=== PATIENT | male | born 1995 | race Caucasian/White ===

== ENCOUNTER 2017-06-21 18:39 | Inpatient (IN) | payer BC ==
[~2017-06-21 18:39] MED LIST: IOPAMIDOL (ISOVUE 370) 100 ML BTL IV ONE
--- NOTE | 2017-06-21 19:33 | EDPHY ---
HPI/HX/ROS/PE/MDM Narrative: CHIEF COMPLAINT: Pulmonary Emboli HPI: This patient is a 21 year old male with history of CVA in February, presenting with bilateral pulmonary emboli identified by CT shortly prior to arrival. Two years ago, he presented to the emergency department with a severe headache and was transported by helicopter to [facility] for admission and treatment of left transverse sinus occlusion. He was formerly anticoagulated (Warfarin) but discontinued this. Family history positive for antithrombin III deficiency in his mother. The patient was in [facility] over thanksgiving break visiting family. When he returned, he noted he became very short of breath after minor exertion. Last weekend, he noted a racing heart. He was evaluated at the [facility] today, and received a CT scan. CT was positive for bilateral pulmonary emboli, and the patient was brought immediately from CT to the emergency department by wheelchair. The patient denies calf pain or swelling. He endorses left hip pain onset three days ago, but he feels this is musculoskeletal in origin. REVIEW OF SYSTEMS: Aside from elements discussed in the HPI, a comprehensive 10-point review of systems was reviewed and is negative. PMH: CVA 2014. Family history positive for antithrombin III deficiency in mother. SOCIAL HISTORY: Nonsmoker. Occasional alcohol use. No illicit drug use. PHYSICAL EXAM: General:Patient is alert, in no acute distress. ENT:Eyes are normal to inspection. ENT inspection normal. Neck: Normal inspection. Full range of motion. Respiratory:No respiratory distress. Breath sounds normal bilaterally. Cardiovascular: Regular rate and rhythm. Strong peripheral pulses. Normal cap refill. Abdomen:The abdomen is nontender to palpation. There are no peritoneal signs. There are normal bowel sounds. Back: Normal to inspection. No tenderness to palpation. Skin: Normal color. No rash. Warm and dry. Extremities: Normal appearance. Full range of motion. Neuro: Oriented x3. Normal motor function. Normal sensory function. ED Course: 21 year old male presents with dyspnea secondary to a pulmonary embolus diagnosed this afternoon by CT. Exam unremarkable. Vitals stable. CTA chest read by Dr. Durham, radiologist, shows extensive bilateral pulmonary embolic disease. Plan to admit for anticoagulation therapy. Plan to administer 80mg SC Lovenox prior to patient's discharge to floor. IV established. Plan for labs including CBC, chemistries, coag, Troponin, D-dimer, and hypercoagulation panel. 17:[address] Dawson, hospitalist. She accepts admission to PCU for bilateral pulmonary emboli. - Data Points Imaging Results: Imaging Impressions Chest/Thorax CTA 06/21/17 18:00 Impression: Extensive bilateral pulmonary embolic disease. Results discussed with Dr. Horner and the patient immediately after the examination, and he was taken directly to the emergency room via wheel chair. General information for patients regarding this examination can be found at [email or web address]. If you have questions or comments about this report, please contact me at (hospital) or [phone] (cell). A test result has been communicated to a licensed care provider and documented in the [employer] Critical Result system on 06/21/2017 18:39, Message ID [id number]. Medications Given: Discontinued Medications Enoxaparin Sodium (Lovenox) 80 mg SC EDNOW ONE Stop: 06/21/17 19:35 Last Admin: 06/21/17 20:32 Dose: 80 mg Sodium Chloride (Ns) 1,000 mls @ 0 mls/hr IV EDNOW ONE; Wide Open PRN Reason: Protocol Stop: 06/21/17 19:35 Last Admin: 06/21/17 20:31 Dose: 1,000 mls General Time Seen by Provider: 06/21/17 19:21 Initial Vital Signs: Initial Vital Signs Temperature (C) 36.8 C 06/21/17 18:50 Heart Rate 90 06/21/17 18:50 Respiratory Rate 16 06/21/17 18:50 Blood Pressure 124/77 H 06/21/17 18:50 O2 Sat (%) 95 06/21/17 18:50 O2 Delivery Mode Room Air Allergies/Adverse Reactions: No Known Allergies Allergy (Verified 06/21/17 19:01) Home Medications: Medication Instructions Recorded Herbals/Supplements -Info Only 1 ea PO DAILY 06/21/17 Ibuprofen [Motrin (*)] 600 mg PO DAILY PRN 06/21/17 Departure - Departure Disposition: [facility] Inpatient Acute Clinical Impression: Pulmonary embolus Qualifiers: Pulmonary embolism type: other Chronicity: acute Condition: Fair Report Scribed for: Jun Romano Report Scribed by: Rosa Alvarado Date of Report: 06/21/17 Time of Report: 19:35 Physician Review and Approval Statement: Portions of this note were transcribed by an ED scribe. I personally performed the history, physical exam, and medical decision making; and confirm the accuracy of the information in the transcribed note.
[2017-06-21] MEDS ORDERED: NS 1,000 ML IV ONE (19:34)
[2017-06-21] MEDS ORDERED: ENOXAPARIN 80 MG/0.8 ML SYR SC ONE (19:34)
--- NOTE | 2017-06-21 19:54 | CPEKG ---
Heart Rate: 88 RR Interval: 682 P-R Interval: 168 QRSD Interval: 76 QT Interval: 352 QTC Interval: 426 P Sanford: 66 QRS Sanford: 51 T Wave Sanford: 17 EKG Severity - NORMAL ECG - EKG Impression: SINUS RHYTHM Electronically Signed By: Jun Romano 21-Jun-2017 21:50:49
[2017-06-21] MEDS ORDERED: ONDANSETRON DISINTEGRATING 4 MG TAB PO PRN (19:57)
[2017-06-21] MEDS ORDERED: ACETAMINOPHEN 325 MG TAB PO PRN (19:57)
[2017-06-21] MEDS ORDERED: ONDANSETRON 4 MG/2 ML VIAL IVP PRN (19:57)
[2017-06-21 20:28] LABS: HEMOGLOBIN 15.7 g/dL (13.7-17.5); MEAN CELL HEMOGLOBIN 28.8 pg (27.9-34.1); MEAN CELL HEMOGLOBIN CONCENTR. 34.1 g/dL (32.4-36.7); MEAN CELL VOLUME 84.4 fL (81.5-99.8); RED BLOOD CELL COUNT 5.45 10^6/uL (4.40-6.38); RED CELL DISTRIBUTION WIDTH 12.6 % (11.5-15.2)
[2017-06-21 20:29] LABS: % IMMATURE GRANULYOCYTES 0.3 % (0.0-1.1); ABSOLUTE IMMATURE GRANULOCYTES 0.03 10^3/uL (0.00-0.10); ADD DIFF? NO; ADD MORPH? NO; ADD SCAN? NO; ATYPICAL LYMPHOCYTE FLAG 0 (0-99); FRAGMENT RBC FLAG 0 (0-99); LEFT SHIFT FLG 0 (0-99); LIPEMIA HEMOLYSIS FLAG 90 (0-99); PLATELET CLUMPS FLAG 0 (0-99); PLATELET COUNT 224 10^3/uL (150-400)
[2017-06-21 20:41] LABS: ANION GAP 16 mEq/L (8-16); CARBON DIOXIDE 22 mEq/l (22-31); CHLORIDE 104 mEq/L (97-110); CREATININE 1.3 mg/dL (0.7-1.3); GLOMERULAR FILTRATION RATE > 60; GLUCOSE 83 mg/dL (70-100); POTASSIUM 4.2 mEq/L (3.5-5.2); SODIUM 142 mEq/L (134-144)
[2017-06-21 20:44] LABS: INR 1.09 (0.83-1.16); PROTIME(PATIENT) 14.3 SEC (12.0-15.0)
[2017-06-21 20:45] LABS: APTT 25.5 SEC (23.0-38.0)
[2017-06-21 20:52] LABS: TROPONIN I < 0.012 ng/mL (0.000-0.034)
[2017-06-21] MEDS ORDERED: NS 1,000 ML IV SCH (22:30)
--- NOTE | 2017-06-21 22:50 | GHP ---
[f rep st] HISTORY AND PHYSICAL DATE OF ADMISSION: 06/21/2017 CHIEF COMPLAINT: Bilateral pulmonary embolism. HISTORY OF PRESENT ILLNESS: A 21-year-old male with history of left transverse sinus thrombosis, secondary intracerebral hemorrhage in 2014, who presented today with bilateral pulmonary emboli, identified by CT shortly prior to arrival. He was previously on Coumadin but discontinued this. He has a positive family history for antithrombin 3 deficiency in his mother. He was in [facility] over and returned last Wednesday, a week ago. Upon return, he noticed his heart racing and significant shortness of breath. He said he would pant when climbing stairs. He was in [employer] this week and noted these symptoms worsening. He also complained of dizziness, especially with his panting episodes. Had a headache this week. He was evaluated at [facility] today and then CT scan was done. REVIEW OF SYSTEMS: I completed a 10-point review of systems, negative except as noted in HPI. PAST MEDICAL HISTORY: CVA in 2014, left transverse sinus occlusion. PAST SURGICAL HISTORY: None. FAMILY HISTORY: Antithrombin 3 deficiency in mother. Paternal uncle with a clotting disorder. SOCIAL HISTORY: He is a senior at . No tobacco or drugs. Significant alcohol intake, said he binged this weekend, 10-12 beers a day. HOME MEDICATIONS: Ibuprofen p.r.n. ALLERGIES: No known drug allergies. PHYSICAL EXAMINATION: VITAL SIGNS: Temperature 36.6, blood pressure 132/86, heart rate in the 90s, respirations 16, 97% on room air. GENERAL: Well- appearing, sitting up in bed, no acute distress. Anxious. HEENT: PERRLA. EOMI. Oropharynx clear. CV: Regular rate and rhythm. No murmurs, gallops, or rubs. No tenderness over the chest. LUNGS: Clear. No crackles or wheezing. ABDOMEN: Soft, nontender, nondistended. Positive bowel sounds. : No suprapubic tenderness. MUSCULOSKELETAL: 5/5 upper and lower extremity strength. No swelling or tenderness over either leg. NEURO: 2 through 12 intact. PSYCH: Alert and oriented x3. LABS: WBC 11, hemoglobin 15, hematocrit 44, platelets 224. D-dimer was 8.5. INR 1.0, PT 14, PTT 25. Sodium 142, potassium 4, chloride 105, creatinine is 1.4, BUN 14, glucose 84. Troponin less than 0.012. BNP is 22. CTA: Extensive bilateral segmental lobar filling defects consistent with pulmonary embolic disease. Right-sided heart chamber is not dilated and interventricular septum retains normal morphology. Chest x-ray is personally reviewed by me. No infiltrate or edema. EKG is personally reviewed by me, sinus rhythm, ST flattening in III, aVF and V2 , V3. ASSESSMENT AND PLAN: 1. Acute pulmonary embolism: history of prior thrombosis. Previously on Coumadin. At this point, I would recommend lifelong anticoagulation. Hypercoagulable panel in the past was negative. This was repeated in the emergency room. He needs to establish care with a primary care physician to follow this. Treat with Lovenox until he decides pill option. He is hemodynamically stable on room air. Troponin and BNP are normal. I had extensive conversation about the risks of AC especially in setting of significant Etoh use. 2. Tachycardia secondary to suspected dehydration. Will hydrate. 3. Acute kidney injury: Creatinine elevated at 1.4. Will hydrate and recheck in the morning. 4. Mild leukocytosis: Likely stress inflammation with acute emboli. No evidence of infection nor symptoms. 5. Diet: Regular. 6. Deep venous thrombosis prophylaxis: On Lovenox. 7. Disposition: Patient warrants observation admission given acute pulmonary emboli requiring telemetry and anticoagulation. /[id number]/MODL MTDD
[2017-06-22] MEDS ORDERED: ENOXAPARIN 80 MG/0.8 ML SYR SC SCH (09:00)
[2017-06-22] MEDS ORDERED: Herbals/Supplements -Info Only PO SCH (09:00)
--- NOTE | 2017-06-22 09:33 | ASMTCASEMG ---
Living Arrangements What is your living Answers: With Other (Not Family) arrangement? Who do you live with? Type Of Residence What kind of residence do Answers: House you live in? 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 Anticipates that pt will d/c independent when medically ready. CM available for d/c needs. Plan: Independent Date Signed: 06/22/2017 09:33 AM Electronically Signed By:DAYO De Leon
--- NOTE | 2017-06-22 12:43 | HOSPPROG ---
Hospitalist Progress Note Assessment/Plan: Patient is a 21-year-old male with a history a left transverse sinus thrombosis secondary to a intra cerebral hemorrhage in 2014. He presented the emergency room after noting he had bilateral pulmonary emboli via CT scan. He has a positive family history of antithrombin 3 deficiency in his mother. He was recently traveling and on return he knows his heart was racing and he had shortness of breath. Today is my counter with the patient. Chart reviewed. * bilateral extensive PE's-will need life long anticoagulation - has had a hypercoagulable panel done in the past that was negative - this panel was repeated in the emergency room - patient is very short of breath w activity and coughs frequently with walking - on treatment dose of Lovenox/ will initiate Pradaxa (it has a reversal agent and patient is very active) - patient and his mom are verifying insurance covers this - pharmacy reviewed w patient about Pradaxa. I gave him a handout in regards to this medication. * tachycardia -resolved * acute kidney injury -recheck in a.m. * mild leukocytosis *right hip pain -has good mobility *Plan: Sunny is very short of breath w any activity, he will require another midnight stay for closer monitoring. Will dc Lovenox, start Pradaxa. He will need a note for a school excuse on discharge. Subjective: Sunny is c/o coughing & shortness of breath w activity Objective: Vital Signs Temp Pulse Resp BP Pulse Ox 37.1 C 91 20 125/90 H 94 06/22/17 11:57 06/22/17 11:57 06/22/17 11:57 06/22/17 11:57 06/22/17 11:57 Laboratory Results 06/21/17 20:05 06/21/17 20:05 06/21/17 06/22/17 06/23/17 05:59 05:59 05:59 Intake Total 1750 Balance 1750 PT 14.3 SEC (12.0-15.0) 06/21/17 20:05 INR 1.09 (0.83-1.16) 06/21/17 20:05 - Physical Exam Constitutional: uncomfortable Eyes: PERRL Ears, Nose, Mouth, Throat: hearing normal Cardiovascular: regular rate and rhythym Respiratory: no respiratory distress, other (increase coughing w deep breaths) Gastrointestinal: normoactive bowel sounds Skin: warm Musculoskeletal: full muscle strength Neurologic: AAOx3 Psychiatric: interacting appropriately ICD10 Worksheet Patient Problems: Problems Problem Status Onset Pulmonary embolus Acute
[2017-06-22 14:13] LABS: PROTEIN C ACTIVITY 72 % (70 - 150)
--- NOTE | 2017-06-22 16:03 | PDMN ---
Medical Necessity Medical necessity: Patient meets INPT criteria per THEATRE MANAGER note and MCG M-290 PE - ( hx of L transverse sinus thrombosis/secondary intracerebral hemorrhage 2014, family history of antithrombin 3 deficiency in mother; bilat extensive PE's found on CT; ongoing dyspnea w/any exertion; will begin coverage w/Pradaxa as it has a reversal agent and patient is very active; ongoing ABEBA/Creat remains elevated at 1.4 after IV hydration; anticipated LOS > 2 midnights for continued close monitoring and transition to new anticoagulant.)
[2017-06-22] MEDS: DABIGATRAN ETEXILATE MESYL 150 MG CAP PO SCH (19:55)
[2017-06-23 05:47] LABS: ANION GAP 18 mEq/L (8-16); CALCIUM 9.3 mg/dL (8.5-10.4); CARBON DIOXIDE 20 mEq/l (22-31); CHLORIDE 106 mEq/L (97-110); CREATININE 1.1 mg/dL (0.7-1.3); GLOMERULAR FILTRATION RATE > 60; GLUCOSE 102 mg/dL (70-100); POTASSIUM 4.3 mEq/L (3.5-5.2); SODIUM 144 mEq/L (134-144)
[2017-06-23] MEDS: DABIGATRAN ETEXILATE MESYL 150 MG CAP PO SCH (08:34)
[2017-06-23 08:38] VITALS: BP 124/77; PULSE 88; RESP 18; TEMP 98.4; O2SAT 93
[2017-06-23 10:49] LABS: PROTEIN S ACTIVITY 155 % (65 - 160)
--- NOTE | 2017-06-23 14:03 | ASDISCHSUM ---
Discharge Information Plan Status:Home with No Needs Medically Cleared to Leave: Discharge Date:06/23/2017 11:57 AM CM D/C Disposition:Home, Routine, Self-Care ADT D/C Disposition:Home, Routine, Self-Care Projected Discharge Date:06/23/2017 11:57 AM Transportation at D/C: Discharge Delay Reason: Follow-Up Date:06/23/2017 11:57 AM Discharge Slot: Final Diagnosis: Placement Information Patient Contact Information Contact Name:DON Relationship:Mother Address: Work Phone: City: [facility] Phone: State/Zip Code: Email: Financial Information Financial Class:HMO and PPO Plans Primary Plan Desc:[employer] Primary Plan Number:[id number] Secondary Plan Desc: Secondary Plan Number: Assessment Information [facility] Initial CM Assessment Living Arrangements What is your living Answers: With Other (Not Family) arrangement? Who do you live with? Type Of Residence What kind of residence do Answers: House you live in? 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 Anticipates that pt will d/c independent when medically ready. CM available for d/c needs. Plan: Independent Date Signed: 06/22/2017 09:33 AM Electronically Signed By:DAYO De Leon Intervention Information
[2017-06-23 16:01] LABS: INTERPRETATION See Comments
--- NOTE | 2017-06-23 21:26 | GDS ---
[f rep st] DISCHARGE SUMMARY DISCHARGE DIAGNOSES: 1. Acute bilateral extensive pulmonary emboli. 2. Tachycardia. 3. Acute kidney injury. 4. Mild leukocytosis. STUDIES AND PROCEDURES DONE: CT angio of the chest. PHYSICAL EXAMINATION: GENERAL: The patient is alert. VITAL SIGNS: Afebrile at 36.9, pulse is 80, respiratory rate is 18, blood pressure is 124/77, he is saturating 93% on room air. I have seen and evaluated the patient on the day of discharge. HOSPITAL COURSE: The patient is a 21-year-old male, who presented to the emergency room with complaints of shortness of breath. He was evaluated and diagnosed with: 1. Bilateral extensive pulmonary emboli. During this hospitalization, hypercoagulable panel has been sent. It is pending at the time of disposition. He has been initiated on Lovenox and transitioned to Pradaxa. A prescription for Pradaxa has been provided for the patient at the time of disposition. He does also have a history of a left transverse sinus thrombus secondary to intracerebral hemorrhage in 2015. It is recommended the patient remain on lifelong anticoagulation therapy. He has been educated about this during this hospital course, and understands the significance of this. He will follow up with a azure architect of his choice in the outpatient setting. 2. Tachycardia. This is in the setting of acute clot, and has resolved. 3. Acute kidney injury. Patient's creatinine is 1.1 on the day of disposition. 4. Disposition: The patient will be discharged home independently. He is hemodynamically stable. He will continue Pradaxa in the outpatient setting, and follow up with azure architect of his choice. Pending studies include coagulability panel. I spent greater than 35 minutes in the care, coordination, and management of this patient's disposition. /[id number]/MODL MTDD
== END 2017-06-23 11:57 | disposition home or self-care (01) | DRG 176 ==
LOC: F3E 21:10 → OBSVTOIN 06-22 14:38
PROVIDERS: ADMIT Internal Medicine; ATTEND Internal Medicine
DX: I26.99 Other pulmonary embolism without acute cor pulmonale (principal); N17.9 Acute kidney failure, unspecified; M25.552 Pain in left hip; E86.0 Dehydration; R00.0 Tachycardia, unspecified; Z86.711 Personal history of pulmonary embolism
CPT/HCPCS: 82947-QW; 85300-90; 85303-90; 85306-90; 86147-90; G0378; J1650; Q9967

== ENCOUNTER → 2017-06-21 | Outpatient (CLI) | payer BC | LOC: BMCIMAGING 15:29 | PROVIDERS: ATTEND Family Medicine | DX: R05 Cough (principal) ==

== ENCOUNTER 2017-09-05 18:39 | Inpatient (IN) | payer BC ==
--- NOTE | 2017-09-05 18:56 | EDPHY ---
H & P Stated Complaint: l upper leg swelling pain with hx of dvt Time Seen by Provider: 09/05/17 18:56 - Personal History Current Tetanus/Diphtheria Vaccine: Yes - Medical/Surgical History Hx Asthma: No Hx Chronic Respiratory Disease: No Hx Diabetes: No Hx Cardiac Disease: No Hx Renal Disease: No Hx Cirrhosis: No Hx Alcoholism: No Hx HIV/AIDS: No Hx Splenectomy or Spleen Trauma: No Other PMH: "stroke" 2 yrs ago, bilateral PEs, - Social History Smoking Status: Never smoked Constitutional: Initial Vital Signs Temperature (C) 36.7 C 09/05/17 18:42 Heart Rate 98 09/05/17 18:42 Respiratory Rate 16 09/05/17 18:42 Blood Pressure 117/74 09/05/17 18:42 O2 Sat (%) 95 09/05/17 18:42 O2 Delivery Mode Room Air Allergies/Adverse Reactions: No Known Allergies Allergy (Verified 09/05/17 18:42) Home Medications: Medication Instructions Recorded Dabigatran Etexilate Mesyl 150 mg PO BID #60 cap 06/23/17 [Pradaxa 150 MG (*)] Medical Decision Making - Diagnostics Imaging Results: Imaging Impressions Extremity Venous Study 09/05/17 18:56 Impression: Diminished flow velocity within the left iliac vein and the IVC worrisome for venous thrombosis. Recommend CT abdomen and pelvis with delayed phase venous imaging for further evaluation of this finding. Results called to Dr. Ortega Guzman at 8:[address] 09/05/17 19:56 Impression: Large volume of thrombus within the inferior vena cava, extending from the common iliac veins bilaterally to the level of the renal veins. Results called to Dr. Ortega Guzman. Chest/Thorax CTA 09/05/17 19:56 Impression: Moderate volume acute pulmonary embolus, most pronounced in the right lower lobe. Results called to Dr. Ortega Guzman at the time of the interpretation. Imaging: Discussed imaging studies w/ square dance caller Radiologist, I viewed and interpreted images myself ED Course/Re-evaluation: CHIEF COMPLAINT: Left upper leg pain HISTORY OF PRESENT ILLNESS: The patient is an antithrombotic (Pradaxa) 21 y/o male with a history of anti- thrombin 3 disorder, bilateral PE's complaining of left upper leg pain, onset 4 days ago. He stopped taking Pradaxa several weeks ago, for 4 days, as he went to the [employer]. He has been taking Pradaxa for 2 weeks as prescribed. He is also feeling mildly short of breath. Denies chest pain, abdominal pain, urinary or bowel complaints, fever or other pertinent symptoms. REVIEW OF SYSTEMS: A 10 point review of systems was performed and is negative with the exception of the elements mentioned in the history of present illness. PHYSICAL EXAM: HR, BP, O2 Sat, RR. Temp noted General Appearance: Alert, well hydrated, appropriate, and non-toxic appearing. Head: Atraumatic without scalp tenderness or obvious injury Eyes: Pupils equal, round, reactive to light and accommodation, EOMI, no trauma , no injection. Ears: Clear bilaterally, no perforation, normal landmarks Nose: Atraumatic, no rhinorrhea, clear. Throat: There is no erythema or exudates, no lesions, normal tonsils, mucus membranes moist. Neck: Supple, nontender, no lymphadenopathy. Respiratory: No retractions, no distress, no wheezes, and no accessory muscle use. Lungs are clear to auscultation bilaterally. Cardiovascular: Regular rate and rhythm, no murmurs, rubs, or gallops. Good capillary refill all extremities. Gastrointestinal: Abdomen is soft, nontender, non-distended, no masses, no rebound, no guarding, no peritoneal signs. Musculoskeletal: Normal active ROM of all extremities, atraumatic. Neurological: Alert, appropriate, and interactive. Non-focal neuro. Skin: No rashes, good turgor, no nodules on palpation. Past medical history: Left transverse sinus thrombosis, bilateral PEs, anti- thrombin 3 disorder Past surgical history: Denies Family history: Mother has anti-thrombin 3 disorder Social history: Student at , lives in [place], single DIAGNOSTICS/PROCEDURES/CRITICAL CARE TIME: Left lower leg US: Slow flow in lower extremity veins, slow flow in vena cava CT angio Chest: New pulmonary emboli, right lower lobe CT venography abdomen: Inferior vena cavae clot up to the left renal vein, left iliac vein clot Critical care time spent by me, Dr. Guzman, exclusively with this patient was 45 minutes, exclusive of PA time and exclusive of procedures. The organ system at risk was cardiovascular and pulmonary and I had multiple CT's to prevent worsening of the patients condition. DIFFERENTIAL DIAGNOSIS: The differential diagnosis for the patient's shortness of breath and leg pain included but was not limited to IVC thrombus, pneumonia, myocardial infarction, acute mountain sickness, high altitude pulmonary edema, congestive heart failure , and pulmonary embolus. MEDICAL DECISION MAKING: The patient is an antithrombotic (Pradaxa) 21 y/o male with a history of anti- thrombin 3 disorder, bilateral PE's presenting with left upper leg pain, onset 4 days ago. He stopped taking his Pradaxa for 4 days, several weeks ago, but he has been taking it as prescribed for 2 weeks. Left leg US and labs ordered. 1954: Spoke with radiologist, he reports the patient has slow flow in the lower extremity veins and in the vena cava. CT angio chest and CT venography abdomen ordered. 2034: Spoke with radiologist; he reports there is an inferior vena cava and left iliac vein clot. There are also pulmonary emboli. IR called for an IVC filter placement. 2041: Reassessed patient and discussed imaging findings. He is comfortable with plan for admission and IVC filter surgery. 2045: Consulted with hospitalist service, Dr. Cervantes accepts admission of this patient after his IVC filter placement. 2099: Spoke with Dr. Anthony and Dr. Thomas, radiologist, regarding IVC filter placement. Dr. Thomas does not believe this hospital has a temporary IVC filter that will fit this patient's IVC. He may need to be transported to [facility]. We will not be able to fly him due to the weather. The patient is currently stable, but the increasingly large clot is not stable as there are multiple pulmonary emboli. He needs a catheter directed thrombolysis and an IVC filter. 2121: Reassessed patient and updated him on the plan for IVC filter and thrombolysis. 2124: Spoke with Dr. Thomas and Dr. Brice, regarding this patient. They believe that an IVC filter will be unable to be placed above this clot at [facility] also. 2154: Consulted with the Dr. Orellana, interventional radiologist, and Dr. Thomas regarding the care of this patient. He does not recommend placing an IVC filter due to the high risk. Dr. Thomas also spoke to his former attending at [facility] who does not recommend placing and IVC filter. The patient will be admitted to this hospital. There have been a total of 4 Interventional Radiologists that have consulted on this patient in regards to whether to place an IVC filter prior to thrombolysis. Everyone is in consensus to have a catheter directed TPA without placing an IVC filter. - Data Points Laboratory Results: Laboratory Results 09/05/17 18:55 18 18:55 18 18 18 18:55 18:55 18:55 WBC 9.77 10^3/uL H 10^3/uL (3.80-9.50) RBC 5.78 10^6/uL 10^6/uL (4.40-6.38) Hgb 15.4 g/dL g/dL (13.7-17.5) Hct 46.9 % % (40.0-51.0) MCV 81.1 fL L fL (81.5-99.8) MCH 26.6 pg L pg (27.9-34.1) MCHC 32.8 g/dL g/dL (32.4-36.7) RDW 13.5 % % (11.5-15.2) Plt Count 280 10^3/uL 10^3/uL (150-400) MPV 10.1 fL fL (8.7-11.7) Neut % (Auto) 64.3 % % (39.3-74.2) Lymph % (Auto) 21.2 % % (15.0-45.0) [place] % (Auto) 9.9 % % (4.5-13.0) Eos % (Auto) 3.5 % % (0.6-7.6) Baso % (Auto) 0.7 % % (0.3-1.7) Nucleat RBC Rel Count 0.0 % % (0.0-0.2) Absolute Neuts (auto) 6.28 10^3/uL 10^3/uL (1.70-6.50) Absolute Lymphs (auto) 2.07 10^3/uL 10^3/uL (1.00-3.00) Absolute Monos (auto) 0.97 10^3/uL H 10^3/uL (0.30-0.80) Absolute Eos (auto) 0.34 10^3/uL 10^3/uL (0.03-0.40) Absolute Basos (auto) 0.07 10^3/uL 10^3/uL (0.02-0.10) Absolute Nucleated RBC 0.00 10^3/uL 10^3/uL (0-0.01) Immature Gran % 0.4 % % (0.0-1.1) Immature Gran # 0.04 10^3/uL 10^3/uL (0.00-0.10) PT 15.7 SEC H SEC (12.0-15.0) INR 1.23 H (0.83-1.16) APTT 34.1 SEC SEC (23.0-38.0) Sodium 142 mEq/L mEq/L (135-145) Potassium 4.0 mEq/L mEq/L (3.5-5.2) Chloride 102 mEq/L mEq/L (97-110) Carbon Dioxide 22 mEq/l mEq/l (22-31) Anion Gap 18 mEq/L H mEq/L (8-16) BUN 14 mg/dL mg/dL (7-23) Creatinine 1.1 mg/dL mg/dL (0.7-1.3) Estimated GFR > 60 Glucose 86 mg/dL mg/dL (70-100) Calcium 9.8 mg/dL mg/dL (8.5-10.4) Departure - Departure Disposition: To OP Cath/Surgery Clinical Impression: Embolism and thrombosis of left iliac vein, Inferior vena cava embolism Pulmonary embolus Qualifiers: Pulmonary embolism type: other Chronicity: acute Acute cor pulmonale presence: with acute cor pulmonale Qualified Code(s): I26.09 - Other pulmonary embolism with acute cor pulmonale Condition: Serious Report Scribed for: Ortega Guzman Report Scribed by: Katelynn Lopez Date of Report: 09/05/17 Time of Report: 18:57
[2017-09-05 19:04] LABS: PLATELET COUNT 280 10^3/uL (150-400)
[2017-09-05 19:14] LABS: INR 1.23 (0.83-1.16); PROTIME(PATIENT) 15.7 SEC (12.0-15.0)
[2017-09-05] MEDS ORDERED: IOPAMIDOL (ISOVUE 370) 100 ML BTL IV ONE (20:02)
[2017-09-05] MEDS ORDERED: diphenhydrAMINE 25 MG CAP PO PRN (22:56)
[2017-09-05] MEDS ORDERED: ACETAMINOPHEN 325 MG TAB PO PRN (22:56)
[2017-09-05] MEDS ORDERED: ONDANSETRON 4 MG/2 ML VIAL IVP PRN (22:56)
--- NOTE | 2017-09-05 23:00 | PDGENHP ---
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 Approximately 3 wks ago, he did not take his Pradaxa for 4 days. He re-started it and has been taking it as prescribed ever since. 4 days ago, he began to notice worsening back and left leg pain, worse with activity. Has never happened before. Keeping the left leg abducted and the knee bent helps with pain. Endorses mild shortness of breath. Workup in the ED demonstrated left greater than right iliocaval thrombosis and PE. IR consulted for consideration of catheter-directed thrombolysis and possible IVC filter placement. Has a h/o left transverse sinus thrombosis with associated hemorrhage 2 yrs ago. Spent a wk in the ICU but has no focal neurological deficits. Has been hospitalized several times for PE, most recently in May 2017. History Information - Allergies/Home Medication List Allergies/Adverse Reactions: No Known Allergies Allergy (Verified 09/05/17 18:42) I have personally reviewed and updated: medical history Past Medical History: ATIII, PE, transverse sinus thrombosis w bleed - Past Medical History Additional medical history: Surgery for gynecomastia at age 16, left intracranial balloon venoplasty 2 yrs ago - Family History Additional family history: Mother also has ATIII deficiency - Social History Smoking Status: Never smoked Alcohol Use: Occasionally (Drinks moderately on wkends) Drug Use: None Review of Systems Review of Systems: ROS: 10pt was reviewed & negative except for what was stated in HPI & below Physical Exam Physical Exam: Gen: Awake, alert, NAD HEENT: Atraumatic, normocephalic, anicteric, OP clear Heart: RRR Lungs: Normal resp effort Abd: NTND, soft MSK: No CCE, left groin mildly TTP Pulses: 2+ DP and radial bilaterally Psych: Normal effect Neuro: Gross nonfocal Temp Pulse Resp BP Pulse Ox 36.7 C 82 16 116/74 94 09/05/17 18:42 09/05/17 21:57 09/05/17 21:57 09/05/17 21:57 09/05/17 21:57 Lab Data & Imaging Review 09/05/17 18:55 09/05/17 18:55 WBC 9.77 10^3/uL (3.80-9.50) H 09/05/17 18:55 RBC 5.78 10^6/uL (4.40-6.38) 09/05/17 18:55 Hgb 15.4 g/dL (13.7-17.5) 09/05/17 18:55 Hct 46.9 % (40.0-51.0) 09/05/17 18:55 MCV 81.1 fL (81.5-99.8) L 09/05/17 18:55 MCH 26.6 pg (27.9-34.1) L 09/05/17 18:55 MCHC 32.8 g/dL (32.4-36.7) 09/05/17 18:55 RDW 13.5 % (11.5-15.2) 09/05/17 18:55 Plt Count 280 10^3/uL (150-400) 09/05/17 18:55 MPV 10.1 fL (8.7-11.7) 09/05/17 18:55 Neut % (Auto) 64.3 % (39.3-74.2) 09/05/17 18:55 Lymph % (Auto) 21.2 % (15.0-45.0) 09/05/17 18:55 [place] % (Auto) 9.9 % (4.5-13.0) 09/05/17 18:55 Eos % (Auto) 3.5 % (0.6-7.6) 09/05/17 18:55 Baso % (Auto) 0.7 % (0.3-1.7) 09/05/17 18:55 Nucleat RBC Rel Count 0.0 % (0.0-0.2) 09/05/17 18:55 Absolute Neuts (auto) 6.28 10^3/uL (1.70-6.50) 09/05/17 18:55 Absolute Lymphs (auto) 2.07 10^3/uL (1.00-3.00) 09/05/17 18:55 Absolute Monos (auto) 0.97 10^3/uL (0.30-0.80) H 09/05/17 18:55 Absolute Eos (auto) 0.34 10^3/uL (0.03-0.40) 09/05/17 18:55 Absolute Basos (auto) 0.07 10^3/uL (0.02-0.10) 09/05/17 18:55 Absolute Nucleated RBC 0.00 10^3/uL (0-0.01) 09/05/17 18:55 Immature Gran % 0.4 % (0.0-1.1) 09/05/17 18:55 Immature Gran # 0.04 10^3/uL (0.00-0.10) 09/05/17 18:55 PT 15.7 SEC (12.0-15.0) H 09/05/17 18:55 INR 1.23 (0.83-1.16) H 09/05/17 18:55 APTT 34.1 SEC (23.0-38.0) 09/05/17 18:55 Sodium 142 mEq/L (135-145) 09/05/17 18:55 Potassium 4.0 mEq/L (3.5-5.2) 09/05/17 18:55 Chloride 102 mEq/L (97-110) 09/05/17 18:55 Carbon Dioxide 22 mEq/l (22-31) 09/05/17 18:55 Anion Gap 18 mEq/L (8-16) H 09/05/17 18:55 BUN 14 mg/dL (7-23) 09/05/17 18:55 Creatinine 1.1 mg/dL (0.7-1.3) 09/05/17 18:55 Estimated GFR > 60 09/05/17 18:55 Glucose 86 mg/dL (70-100) 09/05/17 18:55 Calcium 9.8 mg/dL (8.5-10.4) 09/05/17 18:55 Imaging Review: LLE US, CT AP, CTA chest performed today reviewed. Large burden left greater than right iliocaval thrombosis extending to level of left renal vein. Mild to moderate volume PE. Suprarenal and hepatic IVC too large for filter placement ( 29 mm on series 5 image 18). Slow flow in the LLE veins but left common femoral appears open. Assessment & Plan Assessment: Embolism and thrombosis of left iliac vein (Acute) Inferior vena cava embolism (Acute) Pulmonary embolus (Acute) Plan: Pt w mild to moderated volume PE, but with high volume iliocaval thrombosis. Discussed pt at length with Drs. Guzman and IR Dr. Brice. Also d/w IR Dr. Orellana at . All are in agreement that filter placement is high-risk and that catheter-directed thrombolysis is indicated. H/o intracranial hemorrhage 2 yrs ago and therefore not a contraindication. Plan for initiation of catheter- directed thrombolysis tonight. The procedure, potential benefits, alteratives, and risks, including but not limited to pain, bleeding (including potentially debilitating or fatal intracranial hemorrhage, the risk of which may be slightly elevated given his history), infection, damage to structures in the leg, pelvis, abdomen, or chest , failure of the procedure, and migration of clot which could result in worsening of his condition or potentially fatal pulmonary embolism was discussed at length with the patient and his mother by telephone. All questions were answered. The patient has elected to proceed with catheter-directed thrombolysis.
[2017-09-05] MEDS ORDERED: ALTEPLASE 5 MG in NS 100 ML IV ONE (23:15)
[2017-09-05] MEDS ORDERED: MIDAZOLAM 2 MG/2 ML VIAL ONE (23:17)
[2017-09-05] MEDS ORDERED: fentaNYL 100 MCG/2 ML INJ ONE (23:17)
[2017-09-05] MEDS ORDERED: ALTEPLASE 2 MG VIAL IVP PRN (23:31)
[2017-09-05] MEDS ORDERED: GLUCAGON HCL 1 MG VIAL IVP PRN (23:31)
[2017-09-05] MEDS ORDERED: FLUMAZENIL 0.5 MG/5 ML MDV IVP PRN (23:31)
[2017-09-05] MEDS ORDERED: HEPARIN 10,000 UNIT/10 ML MDV (1,000 UNIT/ML) IVP PRN (23:31)
[2017-09-05] MEDS ORDERED: MEPERIDINE 25 MG/ML SYR IVP PRN (23:31)
[2017-09-05] MEDS ORDERED: PROTAMINE SULFATE 50 MG/5 ML VIAL IVP PRN (23:31)
[2017-09-05] MEDS ORDERED: NALOXONE HCL 0.4 MG/ML INJ IVP PRN (23:31)
--- NOTE | 2017-09-05 23:33 | PDPROPOC ---
Sedation Plan of Care Sedation Plan of Care: vital signs stable, mental status noted, patient educated of risks, benefits, alternatives, patient can tolerate sedation ASA Classification: ASA 2 Planned drugs: fentanyl, midazolam Mallampati Score: Class 2 Mallampati Reference Image: Patient passed 3-3-2 rule?: Yes
[2017-09-05] MEDS ORDERED: HEPARIN/DEXTROSE 25,000 UNIT/500 ML BAG ONE (23:49)
[2017-09-06] MEDS: NS 1,000 ML IV SCH ×3 (00:17→15:26)
[2017-09-06] MEDS: MIDAZOLAM 2 MG/2 ML VIAL IVP PRN ×2 (00:17→16:54)
[2017-09-06] MEDS: fentaNYL 100 MCG/2 ML INJ IVP PRN ×2 (00:18→16:55)
--- NOTE | 2017-09-06 00:29 | PDRADPN ---
Radiology Procedure Note Date of Procedure: 09/06/17 Radiologist: Marcial Thomas Anesthesia: IV Sedation Pre-op Diagnosis: Iliocaval thrombosis Post-op Diagnosis: Same Indication: Iliocaval thrombosis, PE Procedure: Venography, initiation of catheter-directed thrombolysis Finding(s): Patent left CFV, occluded external/common iliac, patent hepatic IVC. 30 cm EKOS placed from left external iliac to suprarenal IVC via left CFV sheath. Inf/Abcess present in the surg proc area at time of surgery?: No EBL: Minimal Complications: No immediate
[2017-09-06] MEDS ORDERED: IOPAMIDOL (ISOVUE-300) 100 ML BTL ONE ×2 (00:47→15:49)
[2017-09-06] MEDS ORDERED: HEPARIN/DEXTROSE 500 ML IV SCH ×2 (01:00→18:29)
[2017-09-06 01:20] LABS: INR 1.26 (0.83-1.16)
[2017-09-06] MEDS: HYDROCODONE/APAP 5/325 TAB PO PRN (02:01)
[2017-09-06] MEDS: LORazepam 2 MG/ML INJ IVP PRN ×3 (02:41→21:09)
--- NOTE | 2017-09-06 02:59 | GHP ---
[f rep st] HISTORY AND PHYSICAL DATE OF ADMISSION: 09/05/2017 Patient's PCP is unlisted. Patient's primary operations program manager is Dr. Chery Linda. SOURCE: Patient provides history, appears reliable. EMR reviewed and case discussed with accepting provider. CHIEF COMPLAINT: Low back pain and shortness of breath. HISTORY OF PRESENT ILLNESS: This is a pleasant 21-year-old gentleman with past medical history signi ficant for antithrombin 3 deficiency and history of multiple PE and DVT, who presents to the emergenc y department today with complaints of 4 days of persistent low back pain. The patient reports with a mbulation his left leg was increasingly painful. He also noted some increasing shortness of breath a nd cough. Denies any hemoptysis and nonproductive cough. He denies any chest pain. No palpitations . No lightheadedness. No syncope. The patient reports that several weeks ago he did hold his Katelyn xa, as he was participating in the [employer]. He subsequently resumed his Pradaxa after several days. He did not have any symptoms or complaints during that time until 4 days ago. In the emergency department, patient underwent imaging starting with lower extremity Doppler, signifi cant for left iliac vein, IVC, venous thrombosis, and subsequently underwent CTA chest, thorax, abdom en showing large volume thrombus within the IVC extending from the common iliac veins bilaterally, mo derate volume acute PE bilaterally, and large embolus in the right lower lobe. Interventional Radiol ogy was consulted and felt he was not a candidate for IVC filter placement. He was taken for directe d thrombolysis and subsequently transferred to the ICU. REVIEW OF SYSTEMS: Negative except as noted above. ALLERGIES: No known drug allergies. HOME MEDICATIONS: Pradaxa 150 mg p.o. b.i.d. PAST MEDICAL HISTORY: Significant for antithrombin 3 deficiency, history of DVT, bilateral PE, and l eft transverse sinus thrombosis. PAST SURGICAL HISTORY: Significant only for procedures as noted above today. FAMILY HISTORY: Mother with history of T3 deficiency. 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 He denies any tobacco or drug use includin g marijuana. The patient does admit to moderate to heavy alcohol use, drinking 3-4 times per week, a pproximately five 12 ounce beers and at least once weekly he binge drinks. The patient reports a his tory of blacking out. The patient declines any referrals or resources for alcohol dependence. CODE STATUS: Full. PHYSICAL EXAMINATION: VITAL SIGNS: Upon arrival to the emergency department, blood pressure 117/74, heart rate 98, respiratory rate 16, O2 saturation 95% on room air with a temperature of 36.5. Vital s currently, blood pressure 135/75, heart rate 87, respiratory rate 14, O2 saturation 96% on room air . GENERAL: No acute distress. Young adult male, is lying quietly in bed. He does appear a little f lushed and fatigued, but appropriate, interactive. HEAD: Normocephalic, atraumatic. EYES: Extraoc ular muscles grossly intact. Pupils equal, round, with decreased reactivity to light bilaterally, bu t symmetric. No scleral icterus or conjunctival injection. ENT: Mucous membranes appear moist. No pharyngeal erythema or exudates. NECK: Supple. Trachea midline. CV: Regular rate and rhythm. N o murmurs, rubs, or gallops appreciated. RESPIRATORY: Unlabored breathing. LUNGS: Clear to auscul tation bilaterally. No wheezes, rales, or rhonchi. Slightly decreased inspiratory effort. ABDOMEN: Positive bowel sounds. Soft, nontender to palpation. No rebound, guarding, or masses appreciated. : No Piña catheter in place. No suprapubic tenderness to palpation. EXTREMITIES: Patient wit hout any cyanosis, clubbing, or edema. Patient with 2+ pedal pulses. Strength exam limited secondar y to postprocedural status. NEURO: Grossly nonfocal. No facial drooping. Patient able to move all distal extremities and sensation intact. PSYCH: Affect slightly flat, but patient is cooperative, o therwise pleasant. LABORATORY STUDIES: WBC 9.77, H and H is 15.4 and 46.9, MCV of 81.1, platelet count is 280. No band s. PT is 15.7, INR 1.23, PTT is 34.1. Repeated PT is 16.0, INR 1.26, PTT is 30.7, fibrinogen 399. Sodium is 142, potassium is 4.0, chloride 102, CO2 is 22, anion gap 18, BUN 14, creatinine is 1.1, GF R greater than 60, glucose 86, calcium is 9.8. Venous Doppler bilateral lower extremities, CT chest, abdomen reports as noted per HPI with acute thromboembolism. ASSESSMENT AND PLAN: A pleasant 21-year-old gentleman with history of T3 deficiency on chronic antic oagulation with Pradaxa, who presents with complaints of chronic lower abdominal pain and left leg pa in, shortness of breath and cough. 1. Acute inferior vena cava thrombus, status post catheter-directed therapy with Interventional Radi ology, Dr. Thomas. The patient will continue overnight on EKOS and plan to return for further evalu ation, reassessment in the morning. Patient will remain n.p.o. Will be monitored closely for any ac tive bleeding. He is not a candidate for IVC filter at this time. 2. Bilateral pulmonary embolism. Anticoagulation as above. Patient is not hypoxic without any tach ycardia. We will continue to monitor. 3. History of a T3 deficiency chronically on Pradaxa. The patient is followed by Dr. Linda. Will consult Hematology in the morning as per day team. 4. Alcohol dependence with history of binge drinking. Reviewed with the patient dangers of binge dr inking with increased risk for cirrhosis and complications. Will obtain LFTs in the morning. Offere d patient further resources, but he declines at this time. Does not feel he has any issues with alco hol dependence. We will request nursing monitor for any evidence of withdrawal and if needed, place patient on a CIWA protocol. The patient currently without any evidence of withdrawal. His last drin k was yesterday evening. 5. Fluid, electrolyte, nutrition. Continue with intravenous supplementation. Overnight patient valentín l be n.p.o. pending reassessment by Interventional Radiology in the morning. Will need to monitor bl ood sugars. Last was in the 80s. Electrolytes will be monitored and replaced if needed. 6. Prophylaxis. Currently on lytic therapy. Sequential compression devices on hold with deep venou s thrombosis. 7. Code status full. 8. Disposition. Patient admitted to inpatient status in the ICU for close monitoring with thromboly tics therapy. /[id number]/MODL
[2017-09-06] MEDS ORDERED: D50W 25 GM/50 ML VIAL IVP PRN (03:09)
[2017-09-06] MEDS: ALTEPLASE 5 MG in NS 100 ML IV SCH ×3 (04:19→13:22)
[2017-09-06 05:58] LABS: PLATELET COUNT 197 10^3/uL (150-400)
--- NOTE | 2017-09-06 08:25 | SOAPPROG ---
SOAP Progress Note Assessment/Plan: Assessment: 21 yo M w ATIII deficiency w h/o multiple venous thrombotic events p/w PE and left liliocaval thrombosis 1 day ago. Currently undergoing CDT. Fibrinogen normal. Plan: 1. Continue tPA @ 1 mg/hr via catheter and heparin @ 300 units/hr via sheath. 2. Plan for lysis check later today. 3. NPO. 09/06/17 08:27 Subjective: Back pain slightly improved this am. Otherwise, doing well. No complaints. Objective: Vital Signs Temp Pulse Resp BP Pulse Ox 37.1 C 89 14 133/67 H 92 09/06/17 04:00 09/06/17 07:00 09/06/17 07:00 09/06/17 07:00 09/06/17 07:00 Laboratory Results 09/06/17 05:40 09/06/17 05:40 09/05/17 09/06/17 09/07/17 05:59 05:59 05:59 Intake Total 2511.1 Output Total 500 Balance 2011.1 PT 16.0 SEC (12.0-15.0) H 09/06/17 00:21 INR 1.26 (0.83-1.16) H 09/06/17 00:21 Gen: Awake, alert, NAD Heart: RRR Lungs: Normal resp effort Abd: NTND, soft Groin: Lt groin dressing CDI, no significant bleeding, no palpable hematoma, NT Psych: Normal affect Neuro: Gross nonfocal ICD10 Worksheet Patient Problems: Problems Problem Status Onset Embolism and thrombosis of left iliac vein Acute Inferior vena cava embolism Acute Pulmonary embolus Acute
--- NOTE | 2017-09-06 10:12 | PDMN ---
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
[2017-09-06] MEDS ORDERED: MIDAZOLAM 2 MG/2 ML VIAL ONE (15:45)
[2017-09-06] MEDS ORDERED: fentaNYL 100 MCG/2 ML INJ ONE (15:45)
--- NOTE | 2017-09-06 16:28 | GCON ---
[f rep st] CONSULTATION REASON FOR REQUEST: Evaluation and management for hypercoagulable state. PRIMARY FINISHED GOODS INSPECTOR: Either Dr. Charles or Dr. Linda. HISTORY OF PRESENT ILLNESS: Sunny is a 21-year-old gentleman who was admitted late last night into early this morning with 4-day history of low back pain, increasing shortness of breath and cough. He also reported his left leg was not swollen, but it was painful and felt like he was walking "on a PEG leg." He underwent a lower extremity Doppler that showed a left iliac, IVC, and IVC venous thrombosis. CT angiogram of the chest showed large volume thrombus within the IVC extending from the common iliac veins bilaterally and a moderate volume of acute PE with a large embolus in the right. IR was consulted. He was not felt to be a candidate for a filter, but he was started on directed thrombolysis. He states that his leg is feeling better, but he is still having some dyspnea and back pain. I initially saw him in the outpatient setting in February 2015 after he had been admitted to the hospital with a sagittal vein thrombosis. While in the hospital , he had testing for hypercoagulability and his antithrombin 3 level was low at 45%. I checked a JAK2 mutation and a lupus anticoagulant panel both negative. It was recommended for him to be on lifelong warfarin, but the plan was to repeat antithrombin about 3 months after that visit. He did not follow up in our office consistently to check his INR, and I do not believe antithrombin level has been repeated. He saw Dr. Linda in May 2015. She noted that his mother has antithrombin 3 deficiency. There was also report that was smoking occasionally and playing soccer. Dr. Linda emphasized the seriousness of his underlying disorder, and she also suspected he had an antithrombin 3 deficiency and recommended repeating the level. He was off warfarin at the time and recommended that he to go back on, but then he did not follow up with her after that. Last June, he presented to the emergency room with chest pain and was found to have bilateral PE. He had not been taking the Coumadin for several months prior to that event. He was given a dose of Lovenox and placed on Pradaxa because [place] was [place] the [place]. He said that the symptoms did slowly improve. He was a 1 month supply and instructions to return. He had not been seen back in the office despite multiple attempts to contact him. ALLERGIES: He has no known drug allergies. HOME MEDICATIONS: Included Pradaxa that he just restarted, that he had been off for at least a couple weeks. CHRONIC ILLNESSES: 1. Blood clots as per HPI. 2. Probable antithrombin 3 deficiency. SURGICAL HISTORY: Unremarkable, aside from the procedures described above. FAMILY HISTORY: Significant for his mother with antithrombin 3 deficiency. SOCIAL HISTORY: He is a [employer] student. He denies tobacco or drug use. He is drinking, although reports he does not drink more than "a typical college student." He does not drink every day, but often drinks over the weekends. He does have a history of blacking out. REVIEW OF SYSTEMS: 10-point review of systems performed, pertinent positives in HPI, otherwise negative. PHYSICAL EXAM: VITAL SIGNS: Temperature is 37.1, pulse is 90, blood pressure is 118/48, saturating 92% on room air. GENERAL: He is a well-appearing gentleman in no distress. HEENT: Unremarkable. LUNGS: Clear anteriorly. CARDIAC: Regular without murmur. EXTREMITIES: Show no significant edema. ABDOMEN: Soft, nontender. NEURO: Grossly intact. LABS: His white count was 9800 on arrival, hemoglobin 15.4, platelet count was normal. Coags on arrival: INR is little bit up at 1.2. His PTT was normal. Chemistry panel was unremarkable. Doppler ultrasound showed diminished flow velocity within the left iliac vein and IVC, worrisome for thrombosis. CT chest shows moderate volume, pulmonary embolism, most pronounced right lower lobe. CT of the abdomen showed large volume thrombus with an inferior vena cava. IMPRESSION: 1. Hypercoagulable state, most likely antithrombin 3 deficiency. 2. Acute IVC thrombus with PE. MEDICAL DECISION MAKING: He is undergoing thrombolysis and currently doing well , although still having some symptoms. Some of the back pain might be a pulmonary infarct. It may take a while for that to completely resolve. Although his antithrombin level has not been repeated away from a clotting episode, his course is highly suspicious with his recurrent severe clots and his mother with the autosomal dominant disorder. I explained to him that this is life-threatening and it needs to be treated closely and consistently. Warfarin has been studied far more than any of the other agents and we can make sure that he is adequately anticoagulated with using warfarin and following his INRs closely. I explained to him that he needs to be consistent with his diet and needs to cut back alcohol, particularly bingeing. He also needs to follow up with us much more closely than he has in the last 3 years. He indicated that he was willing to do this. We will follow along with you while he is in the hospital. /[id number]/MODL MTDD
--- NOTE | 2017-09-06 16:37 | HOSPPROG ---
Hospitalist Progress Note Assessment/Plan: patient in IR and unable to be seen by me admitted after midnight case d/w consulting physicians Objective: Vital Signs Temp Pulse Resp BP Pulse Ox 37.1 C 83 18 125/63 H 93 09/06/17 14:00 09/06/17 14:00 09/06/17 14:00 09/06/17 14:00 09/06/17 14:00 Laboratory Results 09/06/17 05:40 09/06/17 05:40 09/05/17 09/06/17 09/07/17 05:59 05:59 05:59 Intake Total 2511.1 Output Total 500 Balance 2011.1 PT 16.0 SEC (12.0-15.0) H 09/06/17 00:21 INR 1.26 (0.83-1.16) H 09/06/17 00:21 ICD10 Worksheet Patient Problems: Problems Problem Status Onset Embolism and thrombosis of left iliac vein Acute Inferior vena cava embolism Acute Pulmonary embolus Acute
--- NOTE | 2017-09-06 17:09 | ASMTCMCOM ---
CM Note CM Note Notes: 21 yr old male admitted for PE, Inferior Vena Cava, Clot. He has a hx of Antithrombin 3 deficiency and PE's. He has been on Pradaxa but has not taken this medication for 4 days. Patient being tx with TPA and heparin. Patient a [employer] Student. CM to follow. Date Signed: 09/06/2017 05:08 PM Electronically Signed By:Wendy Gomez LCSW
--- NOTE | 2017-09-06 18:18 | GDS ---
[f rep st] DISCHARGE SUMMARY DISPOSITION: Pending acceptance at [facility]. HOSPITAL COURSE: The patient is a 21-year-old gentleman with history of antithrombin III deficiency, who presented to the hospital with bilateral leg pain for 4 days. Three weeks ago, he had a volunta ry cessation of his Pradaxa, and has been taking it as prescribed ever since. He has had some leg pa in and back pain worse with activity. Imaging here reveals a large volume thrombus in the inferior v corey cava extending from the common iliac vein to the level of the renal veins. He had moderate volum e acute pulmonary embolus most pronounced in the right lower lobe. He underwent catheter-directed th rombolysis with Interventional Radiology. This had to be terminated because of low fibrinogen level at 92. The patient did not have clinical bleeding. He underwent followup Interventional Radiology e valuation, which showed a failure to completely resolve the clot. Dr. Thomas, interventional radiol ogist, felt this was an indication for transfer to [facility], which has been initiated. At this point in time, the patient is waiting to restart a heparin drip and will then, pending availa bility of a bed and acceptance at [facility], be transferred. The patient is hemodynamically stable despite pulmonary embolism. He has no oxygen requirement, and he is not tachycardic. Notably, the patient was seen by Hematology, who felt that a direct oral anticoagulant was not ideal management of this and should be managed on warfarin. /[id number]/MODL
[2017-09-06] MEDS ORDERED: HEPARIN 10,000 UNIT/10 ML MDV (1,000 UNIT/ML) IVP PRN (18:29)
[2017-09-06] MEDS ORDERED: HEPARIN 10,000 UNIT/10 ML MDV (1,000 UNIT/ML) IVP ONE (18:30)
--- NOTE | 2017-09-06 19:44 | PDRADPN ---
Radiology Procedure Note Date of Procedure: 09/06/17 Radiologist: Marcial Thomas Anesthesia: IV Sedation Pre-op Diagnosis: Iliocaval thrombosis Post-op Diagnosis: Same Indication: Iliocaval thrombosis, PE Procedure: Lysis check Finding(s): Left external/common iliac now with flow, but still with signifcant residual clot in the IVC. D/w Drs. Brice. We feel the patient would benefit most from transfer to the for higher level of care and consideration of AngioVac. Spoke to IR Drs. Orellana and Yimi at the , who are in agreement. Transfer processs started. Inf/Abcess present in the surg proc area at time of surgery?: No EBL: Minimal Complications: No immediate
[2017-09-07] MEDS: HYDROCODONE/APAP 5/325 TAB PO PRN ×2 (00:15→08:23)
[2017-09-07] MEDS: NS 1,000 ML IV SCH (02:09)
[2017-09-07] MEDS ORDERED: IOPAMIDOL (ISOVUE-300) 100 ML BTL ONE (07:56)
--- NOTE | 2017-09-07 10:04 | PDINTPN ---
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 He was found to have extensive PE and DVT extending to iliac veins. He was treated with catheter-directed thrombolytics but had an incomplete response. An IVC filter was considered, but an adequate size was unavailable, despite informal consultation with multiple IR providers. Plans to transfer to for larger bore angiovac. * VTE in setting of VTE. Plans to transfer to for device not available here. Currently stable with good pulses and warm feet; currently on heparin drip * Headache- mild without CN changes. If persists, may need head CT * Stable for transfer Subjective: mild headache today, otherwise stable overnight. Notes reviewed Objective: Vital Signs Temp Pulse Resp BP Pulse Ox 37.3 C 77 14 125/64 H 99 09/07/17 04:00 09/07/17 06:00 09/07/17 06:00 09/07/17 06:00 09/07/17 06:00 Laboratory Results 09/06/17 05:40 09/06/17 05:40 09/06/17 09/07/17 09/08/17 05:59 05:59 05:59 Intake Total 2511.1 3235 Output Total 500 1375 Balance 2011.1 1860 PT 16.0 SEC (12.0-15.0) H 09/06/17 00:21 INR 1.26 (0.83-1.16) H 09/06/17 00:21 Physical Exam - Physical Exam General Appearance: WD/WN, alert, no apparent distress EENT: PERRL/EOMI Neck: supple Respiratory: lungs clear, normal breath sounds, No respiratory distress, No accessory muscle use Cardiac/Chest: regular rate, rhythm, No edema Abdomen: non-tender, soft, No distended Skin: normal color, warm/dry, No cyanosis Lymphatic: no adenopathy Extremities: other (tender at sheath site without obvious hematoma), No pedal edema, No calf tenderness, No swelling, No Tatiana's sign Neuro/Psych: no motor/sensory deficits, alert, normal mood/affect, oriented x 3 , No abnormal television production technician II-XII, No cognition abnormalities ICD10 Worksheet Patient Problems: Problems Problem Status Onset Embolism and thrombosis of left iliac vein Acute Inferior vena cava embolism Acute Pulmonary embolus Acute
[2017-09-07 11:13] VITALS: BP 122/70; PULSE 88; RESP 13; TEMP 97.9; O2SAT 96
--- NOTE | 2017-09-07 11:50 | GDS ---
[f rep st] DISCHARGE SUMMARY DISPOSITION: To [facility]. IMPORTANT STUDIES: 1. Chest/thorax CT angiogram showing moderate-volume acute PE, mostly in the right lower lobe. 2. Abdominal CT scan showing large-volume thrombus within the IVC, extending from the common iliac v eins bilaterally to the level of the renal veins. PROCEDURES: Ileo-caval thrombolysis by Dr. Cm with [facility] with incomplete clot resolution; postp rocedure venogram showing significant residual clot in the IVC. 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 He had stopped Pradaxa for 4 days, however had restarted. He was found to have moderate-volume right-sided PE. He does have ongoing back pain, likely due to pulmonary inf arct. He has been receiving some IV morphine for this. Additionally had a significant IVC clot. At tempted catheter-directed thrombolysis per Interventional Radiology, which was unsuccessful. Our int erventional radiologists here recommend transfer to a higher level of care for consideration of angio VAC. I have discussed this with Dr. Granados at the [place] who will accept Mr. Bradley. He tra nsferred on heparin drip, in stable condition with normal blood pressure and heart rate, and on room air. He has also been seen and followed by Hematology. They would consider warfarin as opposed to direct oral anticoagulant. BILLING: I spent more than 30 minutes on the day of discharge coordinating care. /[id number]/MODL
--- NOTE | 2017-09-07 14:18 | ASMTCMCOM ---
CM Note CM Note Notes: This CM contacted [facility] and asked for a Critical Care Transport for patient who needed a continuous Heparin drip running for the large clot in his leg. [facility] was going to look for an RN to ride in the ambulance. I received a call from [facility] stating that they had an ambulance near and were sending one over. When the crew arrived there was no RN. I called [facility] to say that there was no RN. They responded that a continuous Heparin drip didn't need a RN but an EMT, who could run Heparin drip and pump. They sent Critical Care with an EMT. INSURANCE PLAN SPECIALIST reports that EMT person did not know how to run the pump for the drip and she had to teach him. The EMT also told the patient he had never done this before. THis did not help for ICU staff and patient confidence. CM contacted [facility] re: EMT training-she will talk to her grading supervisor. CM contacted my pai gow manager who will also talk to [facility] grading supervisor. Date Signed: 09/07/2017 02:17 PM Electronically Signed By:Wendy Gomez LCSW
--- NOTE | 2017-09-07 14:18 | ASDISCHSUM ---
Discharge Information Plan Status:Acute Transfer Medically Cleared to Leave:09/06/2017 Discharge Date:09/07/2017 11:40 AM CM D/C Disposition:[facility] ADT D/C Disposition:[facility] Projected Discharge Date:09/07/2017 12:00 PM Transportation at D/C:ALS/BLS Discharge Delay Reason: Follow-Up Date:09/07/2017 12:00 PM Discharge Slot: Final Diagnosis:PE, Lrg Inferior Vena Cava Clot Placement Information Patient Contact Information Contact Name:DON Relationship:Mother Address: Work Phone: City: [facility] Phone: [facility] Code: Email: Financial Information Financial Class:HMO and PPO Plans Primary Plan Desc:[employer] [facility] Primary Plan Number:[id number] Secondary Plan Desc: Secondary Plan Number: Assessment Information [facility] CM Progress Note CM Note TITO Note Notes: 21 yr old male admitted for PE, Inferior Vena Cava, Clot. He has a hx of Antithrombin 3 deficiency and PE's. He has been on Pradaxa but has not taken this medication for 4 days. Patient being tx with TPA and heparin. Patient a [employer]. CM to follow. Date Signed: 09/06/2017 05:08 PM Electronically Signed By:Wendy Gomez LCSW Case Management Discharge Plan Note Case Management Discharge Discharge Order Complete? Answers: Yes Patient to Obtain Answers: Other Notes: [facility] Medications Transportation Arranged Answers: [facility] Transport will Pick (Date 09/07/2017 11:30 AM & Time) HALEY Complete Answers: Yes Case Management Transport Answers: Yes Form Complete Faxed Final Orders Answers: No Notes: Patient info sent with patient Family Notified Answers: Yes Notes: RN has talked with parents Discharge Comments Notes: Patient is being transferred to [facility] today via Critical Care ambulance. Date Signed: 09/07/2017 11:17 AM Electronically Signed By:Wendy Gomez LCSW [facility] Progress Note CM Note CM Note Notes: This CM contacted [facility] and asked for a Critical Care Transport for patient who needed a continuous Heparin drip running for the large clot in his leg. [facility] was going to look for an RN to ride in the ambulance. I received a call from [facility] stating that they had an ambulance near and were sending one over. When the crew arrived there was no RN. I called [facility] to say that there was no RN. They responded that a continuous Heparin drip didn't need a RN but an EMT, who could run Heparin drip and pump. They sent Critical Care with an EMT. FORMING ACID DUMPER reports that EMT person did not know how to run the pump for the drip and she had to teach him. The EMT also told the patient he had never done this before. THis did not help for ICU staff and patient confidence. TITO contacted [facility] re: EMT training-she will talk to her managing supervisor. TITO contacted my regional merchandising manager who will also talk to [facility] managing supervisor. Date Signed: 09/07/2017 02:17 PM Electronically Signed By:Wendy Gomez LCSW Intervention Information
== END 2017-09-07 11:40 | disposition short-term general hospital (02) | DRG 294 ==
LOC: EEVIPCON 20:34 → F2N 09-06 00:51
PROVIDERS: ADMIT Hospitalist; ATTEND Student in an Organized Health Care Education/Training Program
PROC: 06H033Z Insertion of Infusion Device into Inferior Vena Cava, Percutaneous Approach (ICD-10-PCS; principal; 2017-09-05)
PROC: 3E04317 Introduction of Other Thrombolytic into Central Vein, Percutaneous Approach (ICD-10-PCS; 2017-09-05)
DX: I82.220 Acute embolism and thrombosis of inferior vena cava (principal); I26.99 Other pulmonary embolism without acute cor pulmonale; I82.422 Acute embolism and thrombosis of left iliac vein; D68.59 Other primary thrombophilia; F10.10 Alcohol abuse, uncomplicated; Z91.14 Patient's other noncompliance with medication regimen; Z79.01 Long term (current) use of anticoagulants; Z86.711 Personal history of pulmonary embolism; Z86.718 Personal history of other venous thrombosis and embolism
CPT/HCPCS: 85520-90; C1757; C1769; C1894; J1644; J2060; J2250; J2270; J2997; J3010; Q9967

== ENCOUNTER 2017-10-11 23:05 | Inpatient (IN) | payer BC ==
--- NOTE | 2017-10-11 23:16 | CPEKG ---
Heart Rate: 128 RR Interval: 469 P-R Interval: 164 QRSD Interval: 78 QT Interval: 280 QTC Interval: 409 P Ouray: 72 QRS Ouray: 56 T Wave Ouray: -15 EKG Severity - ABNORMAL ECG - EKG Impression: SINUS TACHYCARDIA EKG Impression: NONSPECIFIC T ABNORMALITIES, INFERIOR LEADS Electronically Signed By: Markus Lyons 12-Oct-2017 07:41:09
[2017-10-11] MEDS ORDERED: NS 1,000 ML IV ONE (23:19)
--- NOTE | 2017-10-11 23:22 | EDPHY ---
H & P Stated Complaint: Cough, SOB, CP, HX of DVT, PE, and clotting dissorder. Time Seen by Provider: 10/11/17 23:19 HPI/ROS: HPI CHIEF COMPLAINT: Chest pain, tachycardia, recent DVT and PE HISTORY OF PRESENT ILLNESS: Patient 22-year-old male, presents emergency room with shortness of breath, inspiratory chest pain, tachycardia, and states that around 10:00 a.m. This morning approximately 12 hr ago he had some extreme pain in his left leg he states his left leg turn purple he got up and walked around and then sat back down on the couch and the discomfort and discoloration went away. States since then he has had some increased heart rate with palpitations , shortness of breath, pleuritic pain, chest pain, additionally reports that the same time that he felt the left side of his face go numb and thought that it left side of his face had a facial droop this is since resolved. He states this happened at 10:00 a.m. When his leg was hurting him and had leg discoloration. Decided come the emergency room as he has ongoing chest pain, shortness of breath, fast heart rate. Pleuritic pain. He does state that he has been compliant with his Pradaxa. 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 Social History: Denies drugs alcohol tobacco. [employer] student. Occasional alcohol use. Family History: Noncontributory. ROS REVIEW OF SYSTEMS: A comprehensive 10 point review of systems is otherwise negative aside from elements mentioned in the history of present illness. Exam Constitutional appears anxious, noted be tachycardic at triage, triage nursing summary reviewed, vital signs reviewed, awake/alert. Eyes normal conjunctivae and sclera, EOMI, PERRLA. HENT normal inspection, atraumatic, moist mucus membranes, no epistaxis, neck supple/ no meningismus, no raccoon eyes. Respiratory clear to auscultation bilaterally, normal breath sounds, no respiratory distress, no wheezing. Cardiovascular rate normal, regular rhythm, no murmur, no edema, distal pulses normal. Gastrointestinal soft, non-tender, no rebound, no guarding, normal bowel sounds, no distension, no pulsatile mass. Genitourinary no CVA tenderness. Musculoskeletal both legs neurovascular intact good distal pulse, good cap refill, no abnormal swelling visualized on legs, no midline vertebral tenderness , full range of motion, no calf swelling, no tenderness of extremities, no meningismus, good pulses, neurovascularly intact. Skin pink, warm, & dry, no rash, skin atraumatic. Neurologic no focal neuro deficit, no facial droop, no sensation difference on either side of the face, awake, alert and oriented x 3, AAOx3, moves all 4 extremities equally, motor intact, sensory intact, CN II-XII intact, normal cerebellar, normal vision, normal speech. Psychiatric normal mood/affect. Heme/Lymph/Immune no lymphadenopathy. Differential Diagnosis: Includes but is not limited to in a particular order pulmonary embolism, pulmonary infarct, worsening PEs, CVA Medical Decision Making: Plan for this patient CT head without contrast, check basic blood work, D-dimer, will proceed with CT angiogram of the chest to make sure does not have a recurrence or new or increasing thrombus. IV establishment IV fluid bolus, IV pain medicine. Full radiographer cardiac catheterization EKG and re -evaluate. Re-evaluation: EKG interpretation by me on record in [facility] system. Impression time of EKG 2314, sinus tachycardia rate of 128 nonspecific T-wave abnormalities. 2342: Patient again has a positive D-dimer. In the setting of chest pain, pleuritic pain, shortness of breath, recent DVT proceed with CT angiogram of the chest to make sure there is not new PE or lung infarct. 1206: CT scan head called to me by Dr. Estrada this is negative for acute bleed or thrombus. Previously seen sinus venous thrombosis is not present. CT scan chest shows new clot burden bilateral pulmonary arteries. Segmental clot. No pulmonary infarct. Plan for CT scan abdomen pelvis with IV contrast to rule out vena cava clot. Plan for heparin drip and heparin bolus. Plan for admission to the SDU for close monitoring. 1218: Consult to Dr. Linda With heme/onc. Agrees with Heparin, will consult in AM. 1239: Patient's current heart rate 120, blood pressure 141/97, pulse ox 99% on room air. Patient resting comfortably. Updated patient on bilateral PEs. His neurological exam this time is unchanged. No focal neuro deficit. No cranial nerve deficit. No evidence of stroke. Patient's main complaint tachycardia chest pain or shortness of breath is due to the bilateral PEs. He has been started on heparin. Heparin bolus and heparin drip. Hematology was consulted. Patient be admitted for close monitor to the step-down unit. 0126: CT abdomen pelvis with IV contrast shows no evidence of IVC are SVC clot however does show left iliac vein clot. Called to me by Dr. Mckinley Source: Patient - Personal History Current Tetanus/Diphtheria Vaccine: Yes Current Tetanus Diphtheria and Acellular Pertussis (TDAP): Yes - Medical/Surgical History Hx Asthma: No Hx Chronic Respiratory Disease: No Hx Diabetes: No Hx Cardiac Disease: No Hx Renal Disease: No Hx Cirrhosis: No Hx Alcoholism: No Hx HIV/AIDS: No Hx Splenectomy or Spleen Trauma: No Other PMH: "stroke" 2 yrs ago, bilateral PEs, DVT - Social History Smoking Status: Never smoked Constitutional: Initial Vital Signs Temperature (C) 36.6 C 10/11/17 23:12 Heart Rate 132 H 10/11/17 23:12 Respiratory Rate 18 10/11/17 23:12 Blood Pressure 138/91 H 10/11/17 23:12 O2 Sat (%) 92 10/11/17 23:12 O2 Delivery Mode Nasal Cannula O2 (L/minute) 2 Allergies/Adverse Reactions: No Known Allergies Allergy (Verified 09/05/17 18:42) Home Medications: Medication Instructions Recorded Ascorbic Acid [Vitamin C 500 mg 500 mg PO DAILY 10/12/17 (*)] Cholecalciferol Vit D3 [Vitamin D3 1,000 units PO DAILY 10/12/17 (*)] Ferrous Sulfate [Ferrous Sulf 325 325 mg PO DAILY 10/12/17 MG (*)] [place]-3 Fatty Acids [Fish Oil 1000 1,000 mg PO DAILY 10/12/17 mg (*)] Acetaminophen [Tylenol 325mg (*)] 650 mg PO Q4HRS PRN tab 10/14/17 Enoxaparin [Lovenox 60 MG (*)] 70 mg SQ Q12H #14 syr 10/14/17 Warfarin Sodium [Coumadin 5MG (*)] 5 mg PO DAILY AT 4PM #30 tab 10/14/17 Medical Decision Making - Data Points Laboratory Results: Laboratory Results 10/11/17 23:21 10/11/17 23:21 Medications Given: Discontinued Medications Hydrocodone Bitart/Acetaminophen ([place] 5/325) 1 - 2 tab PO Q4HRS PRN PRN Reason: Pain, Moderate Able to Take PO Stop: 10/22/17 00:19 Last Admin: 10/12/17 05:45 Dose: 2 tab Enoxaparin Sodium (Lovenox) 70 mg SC BID MICHEL Stop: 04/12/18 11:29 Last Admin: 10/14/17 11:39 Dose: 70 mg Heparin Sodium (Porcine) (Heparin Injection) 0 unit IVP EDNOW ONE PRN Reason: Protocol Stop: 10/12/17 00:06 Last Admin: 10/12/17 00:10 Dose: 4,200 units Heparin Sodium (Porcine) (Heparin Injection) 0 unit IVP PRN PRN; Protocol PRN Reason: Bolus per protocol Stop: 04/10/18 00:49 Last Admin: 10/12/17 08:34 Dose: 2,100 units Sodium Chloride (Ns) 1,000 mls @ 0 mls/hr IV EDNOW ONE; Wide Open PRN Reason: Protocol Stop: 10/11/17 23:20 Last Admin: 10/11/17 23:52 Dose: 1,000 mls Heparin Sodium (Porcine) (Heparin 50 Units/Ml (Premix)) 500 mls @ 0 mls/hr IV EDNOW ONE; Per Protocol PRN Reason: Protocol Stop: 10/12/17 00:06 Last Admin: 10/12/17 00:14 Dose: 500 mls Sodium Chloride (Ns) 1,000 mls @ 0 mls/hr IV ONCE ONE PRN Reason: Wide Open Stop: 10/12/17 00:07 Last Admin: 10/12/17 00:14 Dose: 1,000 mls Sodium Chloride (Ns) 1,000 mls @ 75 mls/hr IV CONT MICHEL Stop: 04/10/18 00:29 Last Admin: 10/12/17 02:00 Dose: 1,000 mls Argatroban 250 mg/ Dextrose 252.5 mls @ 0 mls/hr IV CONT MICHEL; Per Protocol PRN Reason: Protocol Stop: 04/10/18 09:59 Last Admin: 10/13/17 13:29 Dose: 252.5 mls Morphine Sulfate (Morphine) 4 mg IVP EDNOW ONE Stop: 10/11/17 23:33 Last Admin: 10/11/17 23:51 Dose: 4 mg Ondansetron HCl (Zofran) 4 mg IVP EDNOW ONE Stop: 10/11/17 23:33 Last Admin: 10/11/17 23:51 Dose: 4 mg Warfarin Sodium (Coumadin) 5 mg PO DAILY AT 4PM MICHEL Stop: 04/11/18 11:59 Last Admin: 10/13/17 12:10 Dose: 5 mg Departure - Departure Disposition: [facility] Inpatient Acute Clinical Impression: Pulmonary emboli Qualifiers: Pulmonary embolism type: other Chronicity: acute Acute cor pulmonale presence: without acute cor pulmonale Qualified Code(s): I26.99 - Other pulmonary embolism without acute cor pulmonale Condition: Fair
[2017-10-11 23:28] LABS: PLATELET COUNT 187 10^3/uL (150-400)
[2017-10-11] MEDS ORDERED: IOPAMIDOL (ISOVUE 370) 100 ML BTL IV ONE (23:28)
[2017-10-11] MEDS ORDERED: ONDANSETRON 4 MG/2 ML VIAL IVP ONE (23:32)
[2017-10-11 23:37] LABS: INR 1.15 (0.83-1.16); PROTIME(PATIENT) 14.9 SEC (12.0-15.0)
[2017-10-11 23:46] LABS: CREATINE KINASE 138 IU/L (0-224)
[2017-10-12] MEDS ORDERED: HEPARIN/DEXTROSE 500 ML IV ONE (00:05)
[2017-10-12] MEDS ORDERED: HEPARIN 10,000 UNIT/10 ML MDV (1,000 UNIT/ML) IVP ONE (00:05)
[2017-10-12] MEDS ORDERED: NS 1,000 ML IV ONE (00:06)
[2017-10-12] MEDS ORDERED: IOPAMIDOL (ISOVUE-300) 100 ML BTL ONE (00:09)
[2017-10-12] MEDS ORDERED: ONDANSETRON 4 MG/2 ML VIAL IVP PRN (00:20)
[2017-10-12] MEDS ORDERED: ACETAMINOPHEN 325 MG TAB PO PRN (00:20)
[2017-10-12] MEDS ORDERED: HYDROCODONE/APAP 5/325 TAB PO PRN (00:20)
[2017-10-12] MEDS ORDERED: HEPARIN/DEXTROSE 500 ML IV SCH (00:30)
[2017-10-12] MEDS ORDERED: NS 1,000 ML IV SCH (00:30)
[2017-10-12] MEDS ORDERED: HEPARIN 10,000 UNIT/10 ML MDV (1,000 UNIT/ML) IVP PRN (00:50)
--- NOTE | 2017-10-12 02:05 | PDGENHP ---
History and Physical - Chief Complaint Shortness of breath - History of Present Illness Source-patient provides history appears reliable. EMR was reviewed and case discussed with ED provider. 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 Patient reports that he has had a chronic cough that is unchanged nonproductive he has not had any hematemesis. Earlier in the morning approximately 10:00 a.m. Patient reports that he developed some left leg swelling pain. He noted that is proximal leg had turned purple and Butch. Patient tried to ambulate to try to resolve his symptoms upper after approximately an hour these did improve however patient's ambulation did cause patient to developed some pleuritic-type chest pain and shortness of breath. Patient reports that he developed some transient palpitations and lightheadedness on with presyncope but states that he ended up lying down for most of the day to see if he would feel better. Patient also reports that he felt like he had left facial weakness possible drooping but did not actually look in the mirror did have any friends or family available to look in note if he had any actual facial drooping. He does state he had some numbness and tingling sensation pins and needles in his left lower face that did ultimately resolve. He denies any headache. Denies any changes in vision or ocular pain. Patient without any recent illnesses. No fevers or chills. Patient does state that he has been compliant with his Pradaxa. In June patient had stopped his Pradaxa for few days full to participate in [employer] games and subsequently presented back on with acute thromboembolism. 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 Patient chronically anticoagulation on Pradaxa. - Past Medical History Additional medical history: Surgery for gynecomastia at age 16, left intracranial balloon venoplasty 2 yrs ago - Surgical History Additional surgical history: Ileal caval thrombectomy and thrombolysis with EKOS. Balloon angioplasty with angio VAC. - Family History Additional family history: Mother also has ATIII deficiency. Brother-negative for a T3 deficiency. He he does have asthma. Father-is healthy - Social History Smoking Status: Never smoked Alcohol Use: Occasionally (Patient drinks 4-5 liquor based beverages on the weekends. He does not drink until he passes out. Does not interfere with his daily functioning) Drug Use: None Additional social history: Patient is [employer] student. Cor status-full Review of Systems Review of Systems: ROS: 10pt was reviewed & negative except for what was stated in HPI & below Constitutional: Reports: other (Fatigue). Denies: chills, fever EENMT: Denies: blurred vision, nose congestion, sore throat Cardiac: Reports: chest pain (Pleuritic bilateral), lightheadedness, palpitations (Single event resolved earlier in the day.). Denies: edema Respiratory: Reports: cough (Chronic persistent nonproductive no hemoptysis), shortness of breath (Worsened with exertion) Gastrointestinal: Denies: vomitting, abdominal pain, diarrhea, nausea Genitourinary: Denies: dysuria, hematuria Muscolosketal: Reports: no symptoms Skin: Reports: other (Color change to left upper leg) Neurological: Reports: headache (Headache resolved without changes in vision.), numbness (Left lower facial resolved), tingling (Left lower facial resolved), weakness (Generalized weakness) Hematologic/Lymphatic: Reports: no symptoms Physical Exam Physical Exam: Selected Entries 10/11/17 23:12 Blood Pressure Automatic Method Heart Rate 132 H Respiratory 18 Rate O2 Sat (%) 92 Temperature (C) 36.6 C Blood Pressure 138/91 H Mean Arterial 106 H Pressure (MAP) O2 Delivery Room Air Mode Temperature Oral Source Temp Pulse Resp BP Pulse Ox 36.5 C 120 H 22 H 125/80 H 98 10/12/17 01:37 10/12/17 01:37 10/12/17 01:37 10/12/17 01:37 10/12/17 01:37 O2 (L/minute) 2 Constitutional: no apparent distress, other (NAD. Pleasant young adult male lays quietly in bed. Does appear little fatigued but awake and cooperative.) Eyes: PERRL, anicteric sclera, EOMI, scleral injection (Bilateral without drainage or crusting.) Ears, Nose, Mouth, Throat: moist mucous membranes, no oral mucosal ulcers, other (No nasal discharge), No poor dentition Cardiovascular: no murmur, rub, or gallop, pulses symmetric bilaterally, tachycardia, No edema Peripheral Pulses: 2+: dorsalis-pedis (R), dorsalis-pedis (L) Respiratory: no respiratory distress, no rales or rhonchi, clear to auscultation , reduced air movement (Decreased inspiratory effort.) Gastrointestinal: normoactive bowel sounds, soft, non-tender abdomen, no palpable masses, No tenderness, No distension Genitourinary: no bladder tenderness, No hood in urethra Skin: warm, normal color, no rashes or abrasions, other ([place]) Musculoskeletal: full muscle strength, No generalized weakness Neurologic: AAOx3, sensation intact bilaterally, CN II-XII Intact (Grossly intact. No facial droop.), No weakness, No facial droop Psychiatric: interacting appropriately, not encephalopathic, thought process linear Lab Data & Imaging Review 10/11/17 23:21 10/11/17 23:21 WBC 9.85 10^3/uL (3.80-9.50) H 10/11/17 23:21 RBC 5.53 10^6/uL (4.40-6.38) 10/11/17 23:21 Hgb 14.0 g/dL (13.7-17.5) 10/11/17 23:21 POC Hgb 14.6 gm/dL (13.7-17.5) 10/11/17 23:34 Hct 43.6 % (40.0-51.0) 10/11/17 23:21 POC Hct 43 % (40-51) 10/11/17 23:34 MCV 78.8 fL (81.5-99.8) L 10/11/17 23:21 MCH 25.3 pg (27.9-34.1) L 10/11/17 23:21 MCHC 32.1 g/dL (32.4-36.7) L 10/11/17 23:21 RDW 13.8 % (11.5-15.2) 10/11/17 23:21 Plt Count 187 10^3/uL (150-400) 10/11/17 23:21 MPV 10.3 fL (8.7-11.7) 10/11/17 23:21 Neut % (Auto) 74.0 % (39.3-74.2) 10/11/17 23:21 Lymph % (Auto) 15.8 % (15.0-45.0) 10/11/17 23:21 [place] % (Auto) 6.4 % (4.5-13.0) 10/11/17 23:21 Eos % (Auto) 3.1 % (0.6-7.6) 10/11/17: Baso % (Auto) 0.5 % (0.3-1.7) 10/11/17 23: Nucleat RBC Rel Count 0.0 % (0.0-0.2) 10/11/17 23: Absolute Neuts (auto) 7.28 10^3/uL (1.70-6.50) H 10/11/17 23:21 Absolute Lymphs (auto) 1.56 10^3/uL (1.00-3.00) 10/11/17 23:21 Absolute Monos (auto) 0.63 10^3/uL (0.30-0.80) 10/11/17 23:21 Absolute Eos (auto) 0.31 10^3/uL (0.03-0.40) 10/11/17 23:21 Absolute Basos (auto) 0.05 10^3/uL (0.02-0.10) 10/11/17 23:21 Absolute Nucleated RBC 0.00 10^3/uL (0-0.01) 10/11/17 23:21 Immature Gran % 0.2 % (0.0-1.1) 10/11/17 23:21 Immature Gran # 0.02 10^3/uL (0.00-0.10) 10/11/17 23:21 PT 14.9 SEC (12.0-15.0) 10/11/17 23:21 INR 1.15 (0.83-1.16) 10/11/17 23:21 APTT 32.9 SEC (23.0-38.0) 10/11/17 23:21 D-Dimer 1.15 ug/mLFEU (0.00-0.50) H 10/11/17 23:21 POC Sodium 142 mEq/L (135-145) 10/11/17 23:34 Sodium 142 mEq/L (135-145) 10/11/17 23:21 POC Potassium 3.7 mEq/L (3.3-5.0) 10/11/17 23:34 Potassium 4.0 mEq/L (3.5-5.2) 10/11/17 23:21 POC Chloride 107 mEq/L (97-110) 10/11/17 23:34 Chloride 103 mEq/L (97-110) 10/11/17 23:21 Carbon Dioxide 24 mEq/l (22-31) 10/11/17 23:21 Anion Gap 15 mEq/L (8-16) 10/11/17 23:21 POC BUN 14 mg/dL (7-23) 10/11/17 23:34 BUN 15 mg/dL (7-23) 10/11/17 23:21 Creatinine 0.9 mg/dL (0.7-1.3) 10/11/17 23:21 POC Creatinine 1.0 mg/dL (0.7-1.3) 10/11/17 23:34 Estimated GFR > 60 10/11/17 23:21 Glucose 94 mg/dL (70-100) 10/11/17 23:21 POC Glucose 112 mg/dL (70-100) H 10/11/17 23:34 Calcium 9.2 mg/dL (8.5-10.4) 10/11/17 23:21 Magnesium 1.8 mg/dL (1.6-2.3) 10/11/17 23:21 Total Bilirubin 0.5 mg/dL (0.1-1.4) 10/11/17 23:21 Conjugated Bilirubin 0.3 mg/dL (0.0-0.5) 10/11/17 23:21 Unconjugated Bilirubin 0.2 mg/dL (0.0-1.1) 10/11/17 23:21 AST 27 IU/L (17-59) 10/11/17 23:21 ALT 37 IU/L (21-72) 10/11/17 23:21 Alkaline Phosphatase 62 IU/L (38-126) 10/11/17 23:21 Creatine Kinase 138 IU/L (0-224) 10/11/17 23:21 CK-MB (CK-2) Fraction 2.96 ng/mL (0.00-3.19) 10/11/17 23:21 Troponin I 0.652 ng/mL (0.000-0.034) H 10/11/17 23:21 NT-Pro-B Natriuret Pep 194 pg/mL (0-125) H 10/11/17 23:21 Total Protein 7.2 g/dL (6.3-8.2) 10/11/17 23:21 Albumin 4.2 g/dL (3.5-5.0) 10/11/17 23:21 Lipase 70 IU/L (23-300) 10/11/17 23:21 Imaging Review: Chest, One View Portable at 2332 hours History: Chest Pain . Comparison: 09/05/2017 Findings: Cardiac silhouette is normal in size. No pneumonia, edema, pleural effusion, or pneumothorax. Impression: No evidence of acute intrathoracic pathology CT Chest Pulmonary Angiogram With Contrast Enhancement and Multiplanar Reconstructions at 2344 hours History: Chest Pain Comparison: 06/21/2017, 09/05/2017 Technique: 1.25 mm axial multidetector helical CT angiogram imaging was performed through the chest while 75 mL [id number]-[id number] were injected intravenously without complication. The images were then transferred to an independent workstation where multiplanar and three- dimensional reconstructions were performed by the interpreting physician and reviewed at multiple windows. Dose reduction techniques were utilized. CT Pulmonary Angiogram Findings: There is acute bilateral pulmonary thromboembolism beginning at the level of the first pulmonary artery bifurcation on both sides. On the right side thrombosis predominantly involves the lower lobe pulmonary arteries where it appears nearly occlusive. On the left side there is a slightly lower relative volume of clot burden with similar distribution, predominantly into the lower lobe pulmonary arteries where it appears incompletely occlusive. No evidence of intraventricular septal bowing. CT Chest Findings: Visualized portions of the thyroid gland are normal. Heart size is within normal limits no effusion. No spinal or hilar lymphadenopathy. There is no discrete lung consolidation or evidence of infarction. No effusion or pneumothorax. Visualized portions of the upper abdomen are unremarkable. Bones and superficial soft tissues are normal. Impression: Acute pulmonary thromboembolism nearly occlusive to the lower lobe pulmonary arteries on the right side and partially occlusive to lower lobe pulmonary arteries on the left side. When compared to August 2017 CTA chest, the increase in overall thrombus burden indicates a new thromboembolic event. No CT evidence of right heart strain. CT Brain (Without Contrast) at 2343 hours History: Left-sided facial numbness and weakness. Comparison: March 10, 2015 Technique: Axial computed tomographic images of the brain without contrast. Dose reduction techniques were utilized. Findings: Ventricles, cisterns, and sulci are normal without atrophy, hydrocephalus, midline shift /herniation, or epidural/subdural hematomas. The previously demonstrated hypoattenuating thrombus within the left transverse sinus is no longer evident. No acute intraparenchymal hemorrhage, definite infarct, or mass effect. Bone windows demonstrate no displaced fractures. Paranasal sinuses and mastoid air cells are clear. Impression: 1. Normal CT brain without contrast. 2. Apparent interval resolution of left transverse sinus thrombosis. However, sensitivity of noncontrast CT is far inferior to CTA or MRA. Findings were discussed with Dr. Enriquez at 0010 hours 10/12/2017 CT abd/pelvis Preliminary Radiology notations in image reviewed. significant reduction in venous thrombus with residual nonocclusive thrombus in the left common iliac pain. Visualized and Interpreted Chest x-ray results: Yes Visualized and Interpreted imaging results: Yes EKG additional interpertation: Sinus tachycardia in the 120s. No acute ST changes. 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 #Pulmonary embolus (Acute) - patient with bilateral lower pulmonary artery nearly occlusive thromboembolism. Patient has been started on a heparin drip. He reports compliance with use of Pradaxa at home. Hematology consulted from the emergency department and agrees with a heparin drip. Will plan to see the patient in the morning. CTA and EKG without evidence of right heart strain. #Left common iliac vein thromboembolism - appears to be improving from previous studies. Patient is status post an angio VAC in June. #Dyspnea - patient without any noted hypoxic events. Will continue with supplemental oxygen is this does improved patient symptoms. Will need a in exertional pulse ox on room air prior to discharge to evaluate for possible need of home oxygen. #A T3 deficiency - heparin drip and consult as noted above #Chronic anticoagulation # elevated troponin-secondary to acute PE no need to further monitor. On heparin drip. FEN - IV fluid for gentle hydration. Electrolyte monitoring and replacement if needed. Diet as tolerated. PPX-heparin drip in progress, SCDs until therapeutic or as tolerated Cor status-full Disposition-patient has been admitted to inpatient status on ST you for close respiratory and cardiac monitoring given clot burden.
[2017-10-12 06:20] LABS: PLATELET COUNT 140 10^3/uL (150-400)
--- NOTE | 2017-10-12 08:34 | PDMN ---
Medical Necessity Medical necessity: M290- Pulm, embolism A-4 days: dyspnea, CP - acute PE nearly occlusive to LLpulm arteries on R side, , partialy occlusive to LLpulm arteries on L side , Hep drip started, L common iliac vein thromboembolism, elevated trop.( 0.652) , Hx antithrombin 3 def. on chronic Pradaxa, further monitoring and tx needed
--- NOTE | 2017-10-12 09:46 | ECHO ---
[email or web address] [address] Main: [phone] Fax: Transthoracic Echocardiogram Name: MONIQUE RODRIGUEZ MR#: [id number] Study Date: 10/12/2017 Study Time: 07:47 AM Date of : 1995 Age: 22 year(s) Height: 172.7 cm (68 in.) Weight: 70.31 kg (155 lb.) BSA: 1.83 m2 Gender: Male Examination: Limited Echo Indication: Bilateral occulusive PE/elevated troponin/eval RV function Image Quality: Contrast: Requested by: Tanya Cervantes BP: 122 mmHg/73 mmHg Heart Rate: Rhythm: Indication: Bilateral occulusive PE/elevated troponin/eval RV function Procedure Staff Radio Script Writer: Tiana Ortiz RDCS Reading Physician: Florentin Arroyo MD Requesting Provider: Conclusions: The ejection fraction is estimated to be 60-65 %. Moderately dilated right ventricle. Mildly reduced RV function. Trivial mitral valve regurgitation. Mild to moderate tricuspid valve regurgitation. Measurements: Chambers Valvular Assessment AV/MV Valvular Assessment TV/PV Normal Normal Normal Name Value Range Name Value Range Name Value Range EF Range: 60-65 % MV E Vmax: 0.48 m/s ( - ) TR Vmax: 2.84 mm/s ( - ) MV A Vmax: 0.64 m/s ( - ) TR PGmax: 32 mmHg ( - ) MV E/A: 0.75 ( - ) syst. PAP: 42 mmHg ( - ) Continued Measurements: Valvular Assessment AV/MV Valvular Assessment TV/PV Name Value Name Value MV E/E' Septal: 6.00 CVP (est.): 10 mmHg Findings: Left Ventricle: Normal size left ventricle. The ejection fraction is estimated to be 60-65 %. Flattened septal wall consistent with volume overload.. Right Ventricle: Moderately dilated right ventricle. Mildly reduced RV function. Left Atrium: Patient: MONIQUE RODRIGUEZ Study Date: 10/12/2017 Page 1 of 2 07:47 AM The left atrium is normal in size. Right Atrium: The right atrium is mildly dilated. Definite Chiari's network in right atrium. Mitral Valve: Trivial mitral valve regurgitation. Aortic Valve: The aortic valve is tri-leaflet. Tricuspid Valve: Mild to moderate tricuspid valve regurgitation. RVSP is 42mmHG.. Pulmonic Valve: Trivial pulmonic valve regurgitation. (No Signature Object) Patient: MONIQUE RODRIGUEZ Study Date: 10/12/2017 Page 2 of 2 07:47 AM [id number]
[2017-10-12] MEDS: ARGATROBAN 250 MG in D5W 250 ML IV SCH (10:17)
--- NOTE | 2017-10-12 11:22 | GCON ---
[f rep st] CONSULTATION Mr. Bradley is a 22-year-old male with a history of antithrombin 3 deficiency, who presents with recurrent pulmonary embolism. To review, this patient has a family history of antithrombin 3 deficiency. He had an initial episode of a transverse sinus thrombosis in 2014. He took anticoagulation for a brief period of time and then stopped it. He presented in June of 2017 with recurrent chest pain and shortness of breath and was found to have extensive bilateral filling defects on chest CT angiogram consistent with pulmonary embolic disease. He was treated initially, I believe, with Lovenox and then transitioned to Pradaxa. He, sometime in July, stopped his Pradaxa for a period of time and re-presented in August with back and left leg pain and was found to have large clot burden in his chest and also found to have a left greater than right ileo caval thrombosis. It was felt that the suprarenal and hepatic IVC was too large for filter placement. Lytic therapy was attempted, but he failed and he was transferred to the [facility] where he underwent thrombectomy and thrombolysis with the EKOS. My understanding, there was some question about stenting his iliac vein, but eventually it was decided he did not have May-Thurner syndrome and this was decided against. He was discharged on Pradaxa, which he has been taking religiously according to the patient, however, yesterday morning developed again chest discomfort and shortness of breath and noted some purplish discoloration of his left leg and came to the emergency room. CT angiogram showed acute pulmonary thromboembolism nearly occlusive to the lower lobe pulmonary arteries on the right side and partially occlusive to lower lobe pulmonary arteries on the left side. When compared to the August of 2017 chest scan, the increase in overall thrombus burden indicated a new thromboembolic event. A repeat CT of the abdomen is pending. He also had a CT scan of the head, which showed that the 2015 thrombus in the left transverse sinus had resolved. Currently, he is awake and alert. He says he feels better. There is mild swelling that he notes in his left leg. His past medical history is significant for issues as discussed above. He had surgery for gynecomastia at age 16 and may have had an intracranial balloon venoplasty two years ago. Family history is significant for a T3 deficiency in his mother. He is a student. He has a history of binge drinking to some extent. Review of systems is negative for 10 systems except as discussed above. On physical examination, he is a pleasant, alert male. Blood pressure is 122/ 73. He is tachycardic with a heart rate of 108, room air sat is 97%. He is afebrile. He is not icteric. Pharynx is unremarkable. I detect no cervical, supraclavicular, or axillary adenopathy. Lungs are clear to auscultation and percussion. Cardiac exam shows a sinus tachycardia with a normal S1, S2 without murmurs, clicks, or added sounds. Abdomen is benign without organomegaly. The left thigh may be slightly greater than the right, but there is no obvious discoloration. Dorsalis pedis pulses are intact. White count on admission was 9.85, MCV 78, hemoglobin 14, hematocrit 43. Chemistry panel is generally unremarkable. Heparin anti Xa level after eight hours of anticoagulation is less than 0.1. IMPRESSION: Patient with antithrombin 3 deficiency by history. I did on review of his chart from our clinic note an anti Thrombin 3 level of around 70 drawn a few years ago.. I think he is clearly a Pradaxa failure as he says he has been compliant with this. I think there is concern that he might be resistant to heparin which can be seen with AT 3 deficiency given the fact that his anti Xa has not risen,and although some patients could respond to higher doses of heparin, given his clot burden I think it would be lindsay to switch him to argatroban and then transition him to warfarin, probably could try to keep his INR in the 3-3.5 range and he is agreeable with this plan. If the situation does not improve, use of antithrombin 3 concentrate would be a consideration. He had an abdominal CT scan and will review the results of that when available. Our service will follow with you. /[id number]/MODL MTDD
--- NOTE | 2017-10-12 14:46 | HOSPPROG ---
Hospitalist Progress Note Assessment/Plan: Acute PE - in setting of DVT of common iliac vein and AT3 deficiency. Mild heart strain on EKG. Echo with moderately dilated RV and mildly reduced RV fxn. Discussed case with Dr. Campoverde and Dr. Xavier. No change in anti-Xa and PTT levels on heparin, likely heparin resistant with AT3 deficiency. -change from heparin to Argatroban per heme recs -cont telemetry monitoring AT3 deficiency - +H/O transverse sinus thrombosis, IVC thrombus and prior PE. He has failed Pradaxa as he has been compliant with this medication and presents with acute PE. [facility] has consulted. CT abd/pelvis personally reviewed / interpreted - resolution of IVC thrombus, non-occlusive thrombus in left common femoral vein. -cont Argatroban and transition to Coumadin with goal INR 3-3.5 per heme recs Full code Dispo - cont inpt / SDU Subjective: Pt feels fine. No more CP or SOB. Denies leg pain or swelling. No fevers or cough. Objective: Vital Signs Temp Pulse Resp BP Pulse Ox 36.8 C 107 H 19 104/63 92 10/12/17 12:00 10/12/17 12:00 10/12/17 12:00 10/12/17 12:00 10/12/17 12:00 Laboratory Results 10/12/17 06:11 10/11/17 10/12/17 10/13/17 05:59 05:59 05:59 Intake Total 3159 1090 Output Total 700 1700 Balance 2459 -610 PT 14.9 SEC (12.0-15.0) 10/11/17 23:21 INR 1.15 (0.83-1.16) 10/11/17 23:21 - Physical Exam Constitutional: no apparent distress Eyes: PERRL Ears, Nose, Mouth, Throat: moist mucous membranes Cardiovascular: tachycardia Respiratory: no respiratory distress, clear to auscultation Gastrointestinal: normoactive bowel sounds, soft, non-tender abdomen Skin: warm Musculoskeletal: full muscle strength Neurologic: AAOx3 Psychiatric: interacting appropriately ICD10 Worksheet Patient Problems: Problems Problem Status Onset Pulmonary embolus Acute Embolism and thrombosis of left iliac vein Acute Inferior vena cava embolism Acute
--- NOTE | 2017-10-12 15:00 | ASMTCMCOM ---
CM Note CM Note Notes: 22yr old male admitted for Bilateral PE's. He has a Hx of ATIII deficiency, chronic anticoagulation, binge drinks. Not anticipating patient will have discharge needs. Date Signed: 10/12/2017 02:59 PM Electronically Signed By:Wendy Gomez LCSW
--- NOTE | 2017-10-13 10:40 | SOAPPROG ---
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, acute PE Plan:Continue argatroban, start Warfarin today 10/13/17 10:37 Subjective: Feels much better today Objective: Vital Signs Temp Pulse Resp BP Pulse Ox 98.5 F 105 H 17 104/72 94 10/13/17 08:00 10/13/17 08:00 10/13/17 08:00 10/13/17 08:00 10/13/17 08:00 Laboratory Results 10/12/17 06:11 10/12/17 10/13/17 10/14/17 05:59 05:59 05:59 Intake Total 3159 2733 Output Total 700 3575 Balance 2459 -842 PT 14.9 SEC (12.0-15.0) 10/11/17 23:21 INR 1.15 (0.83-1.16) 10/11/17 23:21 Physical Exam - Physical Exam General Appearance: alert, no apparent distress Respiratory: lungs clear, normal breath sounds Cardiac/Chest: tachycardia Abdomen: normal bowel sounds, non-tender Extremities: normal range of motion, No swelling ICD10 Worksheet Patient Problems: Problems Problem Status Onset Pulmonary embolus Acute Embolism and thrombosis of left iliac vein Acute Inferior vena cava embolism Acute
--- NOTE | 2017-10-13 11:46 | HOSPPROG ---
Hospitalist Progress Note Assessment/Plan: Acute PE - in setting of DVT of common iliac vein and AT3 deficiency. Mild heart strain on EKG. Echo with moderately dilated RV and mildly reduced RV fxn. Discussed case with Dr. Campoverde and Dr. Xavier. No change in anti-Xa and PTT levels on heparin, likely heparin resistant with AT3 deficiency. -changed from heparin to Argatroban per heme recs -start coumadin today -per pharmacy, need to overlap coumadin and argatroban until INR 4, then d/c argatroban -cont telemetry monitoring AT3 deficiency - +H/O transverse sinus thrombosis, IVC thrombus and prior PE. He has failed Pradaxa as he has been compliant with this medication and presents with acute PE. [facility] has consulted. CT abd/pelvis personally reviewed / interpreted - resolution of IVC thrombus, non-occlusive thrombus in left common femoral vein. -cont Argatroban and transition to Coumadin as above with goal INR 3-3.5 per heme recs Full code Dispo - cont inpt, transfer to PCU Subjective: Pt "feels great". No CP or SOB. He wants to go home. Objective: Vital Signs Temp Pulse Resp BP Pulse Ox 36.7 C 111 H 18 105/65 95 10/13/17 11:38 10/13/17 11:38 10/13/17 11:38 10/13/17 11:38 10/13/17 11:38 Laboratory Results 10/12/17 06:11 10/12/17 10/13/17 10/14/17 05:59 05:59 05:59 Intake Total 3159 2733 Output Total 700 3575 Balance 2459 -842 PT 14.9 SEC (12.0-15.0) 10/11/17 23:21 INR 1.15 (0.83-1.16) 10/11/17 23:21 - Physical Exam Constitutional: no apparent distress Eyes: PERRL Ears, Nose, Mouth, Throat: moist mucous membranes Cardiovascular: regular rate and rhythym Respiratory: no respiratory distress, clear to auscultation Gastrointestinal: normoactive bowel sounds, soft, non-tender abdomen Skin: warm Musculoskeletal: full muscle strength Neurologic: AAOx3 Psychiatric: interacting appropriately ICD10 Worksheet Patient Problems: Problems Problem Status Onset Pulmonary embolus Acute Embolism and thrombosis of left iliac vein Acute Inferior vena cava embolism Acute
[2017-10-13] MEDS ORDERED: WARFARIN SODIUM 5 MG TAB PO SCH ×2 (12:00→16:00)
[2017-10-13 12:46] LABS: INR 2.36 (0.83-1.16); PROTIME(PATIENT) 25.8 SEC (12.0-15.0)
[2017-10-13] MEDS: ARGATROBAN 250 MG in D5W 250 ML IV SCH (13:29)
[2017-10-14 04:41] LABS: INR 2.01 (0.83-1.16); PROTIME(PATIENT) 22.8 SEC (12.0-15.0)
--- NOTE | 2017-10-14 11:02 | PDDCSUM ---
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 This represents failure of pradaxa. [place] to be resistant to heparin given response to heparin gtt. Patient states he has responded well to LMWH in the past, never had a lmwh failure and very adamant to be discharged today. 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 Treatment plan and reasoning as above. CT abd/pelvis personally reviewed / interpreted - resolution of IVC thrombus, non-occlusive thrombus in left common femoral vein. Follow up: INR in am with oncology, will need close f/u and goal INR is 4 Pending labs: none dc home > 35 min spent in dc, more than half in face to face counseling regarding care plans and f/u care plan
[2017-10-14 11:03] VITALS: BP 113/74
[2017-10-14] MEDS ORDERED: ENOXAPARIN 80 MG/0.8 ML SYR SC SCH (11:30)
--- NOTE | 2017-10-14 12:17 | SOAPPROG ---
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, acute PE Plan:D/c home on subq Lovenox and warfarin, follow up cancer center tomorrow for inr. Theoretical problem of heparin resistance, he understands this, but wants to go home 10/13/17 10:37 10/14/17 12:14 10/14/17 12:16 Subjective: Feels great wants to go home Objective: Vital Signs Temp Pulse Resp BP Pulse Ox 98.4 F 84 16 113/74 96 10/14/17 08:00 10/14/17 08:00 10/14/17 08:00 10/14/17 08:00 10/14/17 08:00 Laboratory Results 10/14/17 04:05 10/13/17 10/14/17 10/15/17 05:59 05:59 05:59 Intake Total 2733 1978 Output Total 3575 1050 Balance -842 928 PT 22.8 SEC (12.0-15.0) H 10/14/17 04:05 INR 2.01 (0.83-1.16) H 10/14/17 04:05 ICD10 Worksheet Patient Problems: Problems Problem Status Onset Embolism and thrombosis of left iliac vein Acute Inferior vena cava embolism Acute Pulmonary embolus Acute
== END 2017-10-14 12:00 | disposition home or self-care (01) | DRG 176 ==
LOC: F2N 10-12 01:40
PROVIDERS: ADMIT Family Medicine; ATTEND Internal Medicine
DX: I26.99 Other pulmonary embolism without acute cor pulmonale (principal); I82.422 Acute embolism and thrombosis of left iliac vein; D68.59 Other primary thrombophilia; Z86.718 Personal history of other venous thrombosis and embolism; Z86.711 Personal history of pulmonary embolism; Z79.01 Long term (current) use of anticoagulants
CPT/HCPCS: 82947-QW; 85520-90; 96374; J0883; J1644; J1650; J2270; J2405; Q9967

== ENCOUNTER 2017-11-29 17:03 | Observation (INO) | payer BC ==
--- NOTE | 2017-11-29 17:27 | EDPHY ---
H & P Time Seen by Provider: 11/29/17 17:15 HPI/ROS: CHIEF COMPLAINT: Left-sided facial numbness HISTORY OF PRESENT ILLNESS: 22-year-old patient presents with left-sided facial numbness yesterday and today. He has a history of antithrombin 3 deficiency and has had a history of IVC thrombus and pulmonary embolism as well as transverse sinus thrombosis and acute venous thromboembolism,. currently on Pradaxa. Wednesday night he developed a headache and then yesterday he had had numbness in the entire left side of his face starting at 2:00 p.m. Lasted until 5:00 p.m.. Came back briefly that night and then came back again today at 1:00 p.m. And lasted for about 60-90 minutes. Currently it is gone. He does not have a significant headache at this time. He said he has been having a little bit of intermittent trouble walking today and yesterday but can't tell me exactly why. Does not have facial numbness or speech difficulty currently. No double vision. Symptoms were mild to moderate and currently gone. Not better worse with anything. REVIEW OF SYSTEMS: Eye: no change in vision ENT: no sore throat Cardiac: no chest pain or syncope Pulmonary: no cough or SOB Abdomen: no vomiting, diarrhea, abdominal pain Musculoskeletal: no back pain Skin: no rash Neuro: HPI Constitutional: no fever : no urinary symptoms A comprehensive 10 point review of systems is otherwise negative aside from elements mentioned in the history of present illness. PAST MEDICAL HISTORY: Anti thrombin 3 deficiency with venous thromboembolism as documented above. Social history: Nonsmoker General Appearance: Alert and conversant, cooperative. Eyes: No scleral icterus. Pupils equal and reactive extraocular motion intact. ENT, Mouth: Normal mucous membranes. Respiratory: Normal respiratory effort, breath sounds equal, lungs are clear to auscultation. Cardiovascular: Regular rate and rhythm. Gastrointestinal: Abdomen is soft and non tender. Neurological: Alert, face symmetric, normal motor and sensory in extremities. [id number] normal bilaterally, fluent speech, ambulatory. Skin: Warm and dry, no rashes. Musculoskeletal: No peripheral edema. Psychiatric: Not agitated. Emergency Department course/MDM: Discussed with Deepak at 1726, will do CT and CTA/V. No stroke alert, currently symptoms resolved. 1848: CT per Dr. Durham shows left transverse sinus thrombosis which is improved since MRA done 03/10/2015. 1855: Discussed with Sotelo, give lovenox and order MRI, admit, no transfer. Likely TIA from subtherapeutic INR of 1.47. Lovenox 1mg/kg discussed with patient, consented. Admit [place]. Lovenox in ED. Smoking Status: Never smoked Constitutional: Initial Vital Signs Temperature (C) 37.3 C 11/29/17 17:07 Heart Rate 106 H 11/29/17 17:07 Respiratory Rate 17 11/29/17 17:07 Blood Pressure 127/77 H 11/29/17 17:07 O2 Sat (%) 95 11/29/17 17:07 O2 Delivery Mode Room Air Allergies/Adverse Reactions: No Known Allergies Allergy (Verified 11/29/17 17:06) Home Medications: Medication Instructions Recorded Ascorbic Acid [Vitamin C 500 mg 500 mg PO DAILY 10/12/17 (*)] Cholecalciferol Vit D3 [Vitamin D3 1,000 units PO DAILY 10/12/17 (*)] [place]-3 Fatty Acids [Fish Oil 1000 1,000 mg PO DAILY 10/12/17 mg (*)] Acetaminophen [Tylenol 325mg (*)] 650 mg PO Q4HRS PRN tab 10/14/17 Warfarin Sodium [Coumadin 5MG (*)] 5 mg PO DAILY AT 4PM #30 tab 10/14/17 Medical Decision Making - Diagnostics EKG Interpretation: 12-lead EKG interpreted by me; official reading is in trace master. My interpretation is sinus tachycardia rate 103 otherwise normal. Imaging Results: Imaging Impressions Head CT 11/29/17 17:52 Impression: Head CT within normal limits. Results called to Dr. Vadim Cruz at 6:29 PM. General information for patients regarding this examination can be found at [email or web address]. If you have questions or comments about this report, please contact me at (hospital) or [phone] (cell). Head CTA 11/29/17 17:52 Impression: Acute versus chronic thrombosis of the left transverse sinus. 2. CT Angiography of the Neck (With Contrast), 18:11 Clinical Indications: Acute intermittent facial numbness, history of antithrombin 3 deficiency Technique: During IV administration of 90 mL of Isovue-370 intravenously, helical multidetector data acquisition was obtained from the upper thorax cephalad through the skull base. The thinly collimated data were manipulated in multiple projections on the 3D computer workstation by the radiologist. Dose reduction techniques were utilized. Findings: The common carotid arteries, bifurcations and both internal carotid arteries are widely patent. Both vertebral arteries are open, the right is dominant. No evidence of thrombosis, occlusion, dissection, atherosclerotic plaque, any stenosis, or ulceration. Impression: Normal. Note: All stenoses are calculated using NASCET Criteria. Results called and discussed with VADIM CRUZ, at 11/29/2017 18:46 General information for patients regarding this examination can be found at [email or web address]. If you have questions or comments about this report, please contact me at (hospital) or [phone] (cell). Neck CTA 11/29/17 17:52 Impression: Acute versus chronic thrombosis of the left transverse sinus. 2. CT Angiography of the Neck (With Contrast), 18:11 Clinical Indications: Acute intermittent facial numbness, history of antithrombin 3 deficiency Technique: During IV administration of 90 mL of Isovue-370 intravenously, helical multidetector data acquisition was obtained from the upper thorax cephalad through the skull base. The thinly collimated data were manipulated in multiple projections on the 3D computer workstation by the radiologist. Dose reduction techniques were utilized. Findings: The common carotid arteries, bifurcations and both internal carotid arteries are widely patent. Both vertebral arteries are open, the right is dominant. No evidence of thrombosis, occlusion, dissection, atherosclerotic plaque, any stenosis, or ulceration. Impression: Normal. Note: All stenoses are calculated using NASCET Criteria. Results called and discussed with VADIM CRUZ, at 11/29/2017 18:46 General information for patients regarding this examination can be found at [email or web address]. If you have questions or comments about this report, please contact me at (hospital) or [phone] (cell). CT negative non contrast per Marva 1829. Imaging: Discussed imaging studies w/ social media content manager Radiologist Consult/Admit Bed Type: [place] [id number] Critical Care Time: Critical care time spent by me, Dr. Cruz, exclusively with the care of this patient was 35 minutes, exclusive of PA or SERVICE TECHNICIAN COPIER time and exclusive of separate procedures. The organ system at risk was neurologic and I ordered multiple diagnostics and in emergency department anticoagulation with Lovenox to stabilize the patient and prevent worsening of the patient's condition. - Data Points Laboratory Results: Laboratory Results 11/29/17 17:38 11/29/17 17:38 11/29/17 11/29/17 11/29/17 17:50 17:38 17:38 WBC RBC Hgb POC Hgb 13.9 gm/dL gm/dL (13.7-17.5) Hct POC Hct 41 % % (40-51) MCV MCH MCHC RDW Plt Count MPV Neut % (Auto) Lymph % (Auto) [place] % (Auto) Eos % (Auto) Baso % (Auto) Nucleat RBC Rel Count Absolute Neuts (auto) Absolute Lymphs (auto) Absolute Monos (auto) Absolute Eos (auto) Absolute Basos (auto) Absolute Nucleated RBC Immature Gran % Immature Gran # PT 18.0 SEC H SEC (12.0-15.0) INR 1.47 H (0.83-1.16) POC Sodium 139 mEq/L mEq/L (135-145) Sodium 139 mEq/L mEq/L (135-145) POC Potassium 3.7 mEq/L mEq/L (3.3-5.0) Potassium 4.1 mEq/L mEq/L (3.3-5.0) POC Chloride 100 mEq/L mEq/L (97-110) Chloride 100 mEq/L mEq/L (97-110) Carbon Dioxide 26 mEq/l mEq/l (22-31) Anion Gap 13 mEq/L mEq/L (8-16) POC BUN 12 mg/dL mg/dL (7-23) BUN 13 mg/dL mg/dL (7-23) Creatinine 1.1 mg/dL mg/dL (0.7-1.3) POC Creatinine 1.1 mg/dL mg/dL (0.7-1.3) Estimated GFR > 60 Glucose 132 mg/dL H mg/dL (70-100) POC Glucose 137 mg/dL H mg/dL (70-100) Calcium 9.2 mg/dL mg/dL (8.5-10.4) 11/29/17 17:38 WBC 6.85 10^3/uL 10^3/uL (3.80-9.50) RBC 5.52 10^6/uL 10^6/uL (4.40-6.38) Hgb 13.5 g/dL L g/dL (13.7-17.5) POC Hgb Hct 41.4 % % (40.0-51.0) POC Hct MCV 75.0 fL L fL (81.5-99.8) MCH 24.5 pg L pg (27.9-34.1) MCHC 32.6 g/dL g/dL (32.4-36.7) RDW 14.8 % % (11.5-15.2) Plt Count 223 10^3/uL 10^3/uL (150-400) MPV 10.1 fL fL (8.7-11.7) Neut % (Auto) 73.5 % % (39.3-74.2) Lymph % (Auto) 13.7 % L % (15.0-45.0) [place] % (Auto) 9.9 % % (4.5-13.0) Eos % (Auto) 2.2 % % (0.6-7.6) Baso % (Auto) 0.4 % % (0.3-1.7) Nucleat RBC Rel Count 0.0 % % (0.0-0.2) Absolute Neuts (auto) 5.03 10^3/uL 10^3/uL (1.70-6.50) Absolute Lymphs (auto) 0.94 10^3/uL L 10^3/uL (1.00-3.00) Absolute Monos (auto) 0.68 10^3/uL 10^3/uL (0.30-0.80) Absolute Eos (auto) 0.15 10^3/uL 10^3/uL (0.03-0.40) Absolute Basos (auto) 0.03 10^3/uL 10^3/uL (0.02-0.10) Absolute Nucleated RBC 0.00 10^3/uL 10^3/uL (0-0.01) Immature Gran % 0.3 % % (0.0-1.1) Immature Gran # 0.02 10^3/uL 10^3/uL (0.00-0.10) PT INR POC Sodium Sodium POC Potassium Potassium POC Chloride Chloride Carbon Dioxide Anion Gap POC BUN BUN Creatinine POC Creatinine Estimated GFR Glucose POC Glucose Calcium Medications Given: Acetaminophen (Tylenol) 650 mg PO Q4HRS PRN PRN Reason: Pain, Mild/Fever, Can Take PO Stop: 05/28/18 19:40 Last Admin: 11/29/17 21:08 Dose: 650 mg Discontinued Medications Enoxaparin Sodium (Lovenox) 70 mg SC EDNOW ONE Stop: 11/29/17 18:59 Last Admin: 11/29/17 19:21 Dose: 70 mg Warfarin Sodium (Coumadin) 10 mg PO ONCE ONE Stop: 11/29/17 20:59 Last Admin: 11/29/17 21:08 Dose: 10 mg Point of Care Test Results: 11/29/17 17:50 POC Sodium 139 POC Potassium 3.7 POC Chloride 100 POC BUN 12 POC Creatinine 1.1 POC Glucose 137 H Departure - Departure Disposition: [facility] Inpatient Acute Clinical Impression: Transient cerebral ischemia Qualifiers: Transient cerebral ischemia type: other Qualified Code(s): G45.8 - Other transient cerebral ischemic attacks and related syndromes Condition: Good
--- NOTE | 2017-11-29 17:30 | CPEKG ---
Heart Rate: 103 RR Interval: 583 P-R Interval: 148 QRSD Interval: 76 QT Interval: 308 QTC Interval: 403 P Comer: 49 QRS Comer: 53 T Wave Comer: 44 EKG Severity - OTHERWISE NORMAL ECG - EKG Impression: SINUS TACHYCARDIA Electronically Signed By: Danis Cruz 29-Nov-2017 17:32:13
[2017-11-29 17:53] LABS: PLATELET COUNT 223 10^3/uL (150-400)
[2017-11-29] MEDS ORDERED: IOPAMIDOL (ISOVUE 370) 100 ML BTL IV ONE (17:56)
[2017-11-29 18:02] LABS: INR 1.47 (0.83-1.16)
[2017-11-29] MEDS ORDERED: ENOXAPARIN 80 MG/0.8 ML SYR SC ONE (18:58)
[2017-11-29] MEDS ORDERED: ONDANSETRON DISINTEGRATING 4 MG TAB PO PRN (19:41)
[2017-11-29] MEDS ORDERED: ONDANSETRON 4 MG/2 ML VIAL IVP PRN (19:41)
[2017-11-29] MEDS ORDERED: ACETAMINOPHEN 325 MG TAB PO PRN (19:41)
[2017-11-29] MEDS ORDERED: WARFARIN SODIUM 5 MG TAB PO ONE (20:58)
[2017-11-29] MEDS ORDERED: oxyCODONE IR 5 MG TAB PO PRN (22:45)
--- NOTE | 2017-11-29 22:50 | PDGENHP ---
History and Physical - Chief Complaint Acute paresthesias - History of Present Illness Primary compliance manager: Dr. Mackenzie Campoverde HPI: 22-year-old male presents with acute paresthesias characterized as numb sensation located on his left face with associated preceding headache, blurred vision, and mild ataxia. He reports that the onset of symptoms was 3 days prior and duration was intermittent thereafter. The patient reports an initial sentinel episode of global headache, followed by symptoms of left facial paresthesia with spontaneous resolution. He did not experience any paresis. The symptoms reoccurred on 11/28 and lasted for approximately 3 hr. They reoccurred on the day of presentation, 11/29, at 1:00 p.m. And lasted for 60-90 minutes. On all the occasions, the patient was not exerting himself and he did not engage in any activities that would otherwise alleviate the episodes. He did report that during the index presentation, he had recently consistent a substantial amount of alcohol after he completed his finals. On the 2nd episode , he had consumed approximately 1-2 beers prior to onset. On the day of presentation, on the 3rd episode, he had not consumed any alcohol. He reports that his last INR check was approximately 1.5 to 2 weeks ago, and it was 2.4 at that time. He was instructed to increase his Coumadin dosage to 10 mg once weekly, and 5 mg on all other days. He adhered to that recommendation. He otherwise reports that his diet has not recently changed and he has not recently made any other medication adjustments. He denies any recent bleeding episodes and he denies any recent illnesses. History Information - Allergies/Home Medication List Allergies/Adverse Reactions: No Known Allergies Allergy (Verified 11/29/17 17:06) Home Medications: Ascorbic Acid [Vitamin C 500 mg (*)] 500 mg PO DAILY 10/12/17 [Last Taken 09:00] Cholecalciferol Vit D3 [Vitamin D3 (*)] 1,000 units PO DAILY 10/12/17 [Last Taken 11/28/17 09:00] [place]-3 Fatty Acids [Fish Oil 1000 mg (*)] 1,000 mg PO DAILY 10/12/17 [Last Taken 11/28/17 09:00] Warfarin Sodium [Coumadin 5MG (*)] 5 mg PO SUMOTUWETHSA@20 11/29/17 [Last Taken 11/29/17 21:00 10 MG] Warfarin Sodium [Coumadin 5MG (*)] 10 mg PO FR@20 11/29/17 [Last Taken 11/26/17] I have personally reviewed and updated: family history, medical history, social history, surgical history Past Medical History: 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 Seasonal allergies - Past Medical History Additional medical history: Surgery for gynecomastia at age 16, left intracranial balloon venoplasty 2 yrs ago, IVC filter placement - Surgical History Additional surgical history: Ileal caval thrombectomy and thrombolysis with EKOS. Balloon angioplasty with angio VAC. - Family History Additional family history: Mother also has ATIII deficiency. Brother-negative for a T3 deficiency. He he does have asthma. Father-is healthy - Social History Smoking Status: Never smoked Alcohol Use: Occasionally (With recent binge 4 and 5 days prior to presentation) Drug Use: None Additional social history: Patient is [employer] student. Cor status-full Review of Systems Review of Systems: ROS: 10pt was reviewed & negative except for what was stated in HPI & below EENMT: Reports: blurred vision Neurological: Reports: headache, paresthesia (Left face), other (Ataxia) Physical Exam Physical Exam: Temp Pulse Resp BP Pulse Ox 37.3 C 92 18 128/77 H 96 11/29/17 21:02 11/29/17 21:02 11/29/17 21:02 11/29/17 21:02 11/29/17 21:02 Constitutional: no apparent distress, appears nourished, not in pain Eyes: PERRL, anicteric sclera, EOMI Ears, Nose, Mouth, Throat: moist mucous membranes, hearing normal, ears appear normal, no oral mucosal ulcers Cardiovascular: regular rate and rhythym, no murmur, rub, or gallop, No edema Respiratory: no respiratory distress, no rales or rhonchi, clear to auscultation Gastrointestinal: normoactive bowel sounds, soft, non-tender abdomen, no palpable masses Skin: warm, No abrasion, No rash Neurologic: AAOx3, sensation intact bilaterally, CN II-XII Intact, No weakness, No facial droop Psychiatric: interacting appropriately, not anxious, not encephalopathic, thought process linear Lab Data & Imaging Review 11/29/17 17:38 11/29/17 17:38 WBC 6.85 10^3/uL (3.80-9.50) 11/29/17 17:38 RBC 5.52 10^6/uL (4.40-6.38) 11/29/17 17:38 Hgb 13.5 g/dL (13.7-17.5) L 11/29/17 17:38 POC Hgb 13.9 gm/dL (13.7-17.5) 11/29/17 17:50 Hct 41.4 % (40.0-51.0) 11/29/17 17:38 POC Hct 41 % (40-51) 11/29/17 17:50 MCV 75.0 fL (81.5-99.8) L 11/29/17 17:38 MCH 24.5 pg (27.9-34.1) L 11/29/17 17:38 MCHC 32.6 g/dL (32.4-36.7) 11/29/17 17:38 RDW 14.8 % (11.5-15.2) 11/29/17 17:38 Plt Count 223 10^3/uL (150-400) 11/29/17 17:38 MPV 10.1 fL (8.7-11.7) 11/29/17 17:38 Neut % (Auto) 73.5 % (39.3-74.2) 11/29/17 17:38 Lymph % (Auto) 13.7 % (15.0-45.0) L 11/29/17 17:38 [place] % (Auto) 9.9 % (4.5-13.0) 11/29/17 17:38 Eos % (Auto) 2.2 % (0.6-7.6) 11/29/17 17:38 Baso % (Auto) 0.4 % (0.3-1.7) 11/29/17 17:38 Nucleat RBC Rel Count 0.0 % (0.0-0.2) 11/29/17 17:38 Absolute Neuts (auto) 5.03 10^3/uL (1.70-6.50) 11/29/17 17:38 Absolute Lymphs (auto) 0.94 10^3/uL (1.00-3.00) L 11/29/17 17:38 Absolute Monos (auto) 0.68 10^3/uL (0.30-0.80) 11/29/17 17:38 Absolute Eos (auto) 0.15 10^3/uL (0.03-0.40) 11/29/17 17:38 Absolute Basos (auto) 0.03 10^3/uL (0.02-0.10) 11/29/17 17:38 Absolute Nucleated RBC 0.00 10^3/uL (0-0.01) 11/29/17 17:38 Immature Gran % 0.3 % (0.0-1.1) 11/29/17 17:38 Immature Gran # 0.02 10^3/uL (0.00-0.10) 11/29/17 17:38 PT 18.0 SEC (12.0-15.0) H 11/29/17 17:38 INR 1.47 (0.83-1.16) H 11/29/17 17:38 POC Sodium 139 mEq/L (135-145) 11/29/17 17:50 Sodium 139 mEq/L (135-145) 11/29/17 17:38 POC Potassium 3.7 mEq/L (3.3-5.0) 11/29/17 17:50 Potassium 4.1 mEq/L (3.3-5.0) 11/29/17 17:38 POC Chloride 100 mEq/L (97-110) 11/29/17 17:50 Chloride 100 mEq/L (97-110) 11/29/17 17:38 Carbon Dioxide 26 mEq/l (22-31) 11/29/17 17:38 Anion Gap 13 mEq/L (8-16) 11/29/17 17:38 POC BUN 12 mg/dL (7-23) 11/29/17 17:50 BUN 13 mg/dL (7-23) 11/29/17 17:38 Creatinine 1.1 mg/dL (0.7-1.3) 11/29/17 17:38 POC Creatinine 1.1 mg/dL (0.7-1.3) 11/29/17 17:50 Estimated GFR > 60 11/29/17 17:38 Glucose 132 mg/dL (70-100) H 11/29/17 17:38 POC Glucose 137 mg/dL (70-100) H 11/29/17 17:50 Calcium 9.2 mg/dL (8.5-10.4) 11/29/17 17:38 Visualized and Interpreted EKG results: Yes EKG Interpretation: Positive for: other (Sinus tachycardia) Assessment & Plan Assessment: 22-year-old male presents with acute TIA in the setting of known antithrombin 3 deficiency and subtherapeutic INR Plan: 1. TIA. Acute, new problem this provider, further workup indicated. Evidenced by left facial paresthesia, headache, blurred vision, ataxia, all of which have resolved -most likely secondary to transient small vessel occlusion in the setting of subtherapeutic INR -brain MRI performed which demonstrates no acute CVA, transverse sinus thrombosis considered to be most likely chronic and not new occlusion -given the patient's significantly elevated risk of breakthrough clotting and neurologic compromise, get q.2 hours neuro checks to ensure that this situation has stabilized -discussed with Dr. Danis Cruz in the emergency department, he has reported to me that neurology has been consulted and will evaluate patient in the morning, recommending bridging therapy with Lovenox while INR is less than 2.5 -if the patient experiences any neurologic symptoms, please contact hospitalist emergently, we will reassess patient, and consider transfer to [facility] for catheter directed intervention if necessary 2. Antithrombin 3 deficiency. Patient with lengthy history of antithrombin 3 disease -reviewed outside records including 10/14/[address] Cristela Hardy, she reports the patient failed Pradaxa therapy and did not respond well to heparin drip, was given Lovenox therapy successfully as bridging therapy with a goal INR of 4 -INR 1.47 on presentation, clearly subtherapeutic, unclear etiology -placed on therapeutic Lovenox bridging therapy -given Coumadin 10 mg on 11/29 p.m., gauge whether to continue increased dosing tomorrow based on INR -will notify Hematology of patient's presentation and request consultation for tomorrow a.m. Regarding goal INR an optimal follow-up -recommend the patient discontinue use of alcohol in the short term a to avoid complicating his systemic anticoagulation Diet. Regular Prophylaxis. High risk patient, currently on therapeutic Lovenox Code. Full Disposition. Anticipated discharge 11/30, pending stabilization of conditions outlined above.
[2017-11-30 06:37] LABS: INR 1.75 (0.83-1.16); PROTIME(PATIENT) 20.5 SEC (12.0-15.0)
[2017-11-30] MEDS ORDERED: ENOXAPARIN 80 MG/0.8 ML SYR SC SCH (07:00)
[2017-11-30 08:10] VITALS: BP 114/81
[2017-11-30] MEDS ORDERED: CHOLECALCIFEROL VIT D3 1,000 UNITS TAB PO SCH (09:00)
[2017-11-30] MEDS ORDERED: OMEGA-3 FATTY ACIDS 1,000 MG CAP PO SCH (09:00)
[2017-11-30] MEDS ORDERED: ASCORBIC ACID 500 MG TAB PO SCH (09:00)
--- NOTE | 2017-11-30 10:28 | GCON ---
[f rep st] CONSULTATION NEUROLOGY CONSULTATION. REFERRING PHYSICIAN: Jas Hannah MD CHIEF COMPLAINT: Transient neurologic symptoms. HISTORY OF PRESENT ILLNESS: The patient is a very pleasant 22-year-old young man, well known to the [facility] due to his underlying diagnosis for antithrombin 3 deficiency with previous left-sided transverse venous thrombosis history with catheter directed balloon angioplasty and subsequent CVA at [facility]. He has had PE, DVT, IVC thrombosis down to his left iliac, status post thrombosis as well at [facility]. Please see extensive past medical history for details. He has failed Pradaxa and is now on warfarin with a goal of 3-3.5 according to the patient. The patient came to the hospital for 3 days of waxing and waning symptoms characterized by headache that was whole cephalic, blurred vision, left-sided facial numbness and mild ataxia. The symptoms would last for 2-3 hours and spontaneously resolved. Therefore, he would not seek care, but then they would recur again for 1-3 hours and continue this pattern for the last 3 days prior to coming to the emergency department. He did not have any symptoms in his limbs outside of a little bit of balance problems while walking. He states he has been studying for finals and his diet has been off in terms of why his INR may have been low when he came in. The patient's initial INR in the ED was 1.47. He had a stat CTA, CTV of the head to exclude a new sign of venous thrombosis. The patient's CTA, CTV of the head and neck showed normal vasculature of the neck. Of the head, the left transverse sinus showed a probable chronic thrombosis there. It was noted that the thrombosed section was a shorter segment than what was previously present in February of 2015. The other sinuses and veins were patent. No other findings on angiography. The patient had an MRI of brain last night as well, which showed no evidence of an acute infarct. There was some hemosiderin from his previous event in the left cerebellum, chronic, and the venous thrombosis again was commented upon and compare from the CT noted to be the chronic left venous sinus thrombosis. The patient was already improving when he came to the emergency department and received low molecular weight heparin and had complete resolution of his symptoms. Now, he is back to baseline without any symptoms at all. PAST MEDICAL HISTORY, SOCIAL HISTORY, FAMILY HISTORY, HOME MEDICATIONS, ALLERGIES: Please see Dr. Hannah's H and P. PHYSICAL EXAM: VITAL SIGNS: Blood pressure 114/81, temperature 36.6, O2 sats 96%, respirations 16. GENERAL: The patient is awake, alert, very pleasant. Higher mental function. He names 5/5, repeats 5/5 and follow commands 5/5. He has no aphasia. He is lucid. On cranial nerve exam normal 2 through 7, 11, and 12. No deficits on cranial nerve exam. No facial numbness subjective or objectively noted. Motor exam is normal strength, tone throughout. Sensory exam normal to light touch in all 4 extremities. Coordination shows normal [id number] in both upper extremities. IMPRESSION AND PLAN: 1. Transient neurologic symptoms, resolved. 2. Antithrombin 3 deficiency, on oral anticoagulation. Overall, the patient certainly may have had a transient ischemic attack type symptomatology from a venous clot that formed and then likely started dissolving spontaneously prior to the coming to the emergency department as he was already getting better prior to his first dose of low-molecular weight heparin. Fortunately, there is no evidence of a new sinovenous thrombosis on CTV of the head and neck. His MRI brain does not show any acute infarct, thankfully. I counseled the patient at great length regarding these findings. We discussed that this have been a TIA from his low INR at 1.4 from a venous mechanism. We discussed the importance of diligent consistency with his diet, especially vitamin K rich foods, and consistency with his diet in general. He understands and agrees to the plan. He would like to discharge home today on low-molecular weight heparin. I think that is reasonable as he will return to the emergency department for any acute neurologic symptoms. He is agreeable. He would have close followup with Dr. Campoverde in the INR clinic to make sure he is back to his goal INR -- before discontinuing low-molecular weight heparin. This will be arranged. He may have some adjustments of his Coumadin recommended as well by the hospitalist team. No further recommendations now. We will sign off and follow up as needed. Please do not hesitate to call if there are any questions or changes in neurologic status with this very pleasant young man. Seventy total minutes floor time reviewing past medical history including inpatient records, current medical inpatient records, including imaging, and direct counseling with the patient. /[id number]/MODL MTDD
--- NOTE | 2017-11-30 11:54 | GDS ---
[f rep st] DISCHARGE SUMMARY DISCHARGE DIAGNOSES: 1. Transient neurologic symptoms, resolved. 2. Antithrombin 3 deficiency with a severe hypercoagulable state, probable transverse venous thrombo sis. 3. Transient ischemic attack. 4. History of transverse venous thrombosis, status post catheter-directed balloon angioplasty and azul bsequent stroke. 5. 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 6. History of Pradaxa failure. 7. Inferior vena cava filter. HISTORY: The patient is a 22-year-old male with a severe hypercoagulable state, previous transverse sinus thrombosis, presented with a subtherapeutic INR of 1.4 when his normal goal is 3 to 3.5. He vergara d waxing and waning symptoms of headache, blurred vision, left-sided facial numbness and mild ataxia. Workup included a CT angiogram and CT venogram, which did show chronic thrombosis in his left trans verse sinus, which actually looks better compared to his previous scan. He was given a dose of Loven ox when his INR was noted to be subtherapeutic and admitted under observation. He has now had comple te resolution of all neuro symptoms and is back to baseline. He was seen this morning in consultatio n by Dr. Sotelo. Dr. Sotelo suspects he had a venous clot that formed and dissolved spontaneously prior to coming to the emergency room as it was already improving prior to his first dose of low molecular we ight heparin. Luckily, there are no new signs of venous thrombosis on CT venogram of the head and ne ck. MRI of the brain does not show any acute infarct. He was counseled regarding INR maintenance at goal and dietary compliance. He thinks his Coumadin dose is chronically too low and requests it be increased. He will discharge on low molecular weight heparin and follow up in [address] Campoverde for repeat INR check. His warfarin will be increased to 7.5 mg p.o. daily. DISCHARGE MEDICATIONS: Please see computerized record for full detailed list. New medications: 1. Lovenox 70 mg subcu b.i.d. until INR is at goal. 2. Warfarin increased to 7.5 mg p.o. daily. ADDITIONAL DISCHARGE INSTRUCTIONS: Follow up with Dr. Campoverde for INR check recommended in 2 days. Greater than 30 minutes' time spent arranging this discharge. Patient was seen and examined by me on the day of discharge. /[id number]/MODL
--- NOTE | 2017-11-30 17:15 | ASMTCMCOM ---
CM Note CM Note Notes: Pt medically stable for d/c, no CM d/c needs identified. Date Signed: 11/30/2017 03:27 PM Electronically Signed By:GOLD Moore
[2017-11-30] MEDS ORDERED: WARFARIN SODIUM 5 MG TAB PO SCH ×2 (20:00)
[2017-12-03] MEDS ORDERED: WARFARIN SODIUM 5 MG TAB PO SCH ×2 (20:00)
== END 2017-11-30 11:16 | disposition home or self-care (01) ==
LOC: F3N 20:28
PROVIDERS: ADMIT Internal Medicine; ATTEND Internal Medicine
DX: G45.9 Transient cerebral ischemic attack, unspecified (principal); R29.818 Other symptoms and signs involving the nervous system; D68.59 Other primary thrombophilia; G08 Intracranial and intraspinal phlebitis and thrombophlebitis; Z79.01 Long term (current) use of anticoagulants; Z86.711 Personal history of pulmonary embolism; Z86.718 Personal history of other venous thrombosis and embolism; Z95.828 Presence of other vascular implants and grafts
CPT/HCPCS: 70450; 70496; 70498; 70551; 93005; G0378; 82947-QW; J1650; Q9967

== ENCOUNTER 2017-12-06 19:20 | Emergency (ER) | payer BC ==
--- NOTE | 2017-12-06 19:36 | EDPHY ---
H & P Stated Complaint: Cough and bilat legs hurt - Personal History Current Tetanus/Diphtheria Vaccine: Unsure Current Tetanus Diphtheria and Acellular Pertussis (TDAP): Unsure - Medical/Surgical History Hx Asthma: No Hx Chronic Respiratory Disease: No Hx Diabetes: No Hx Cardiac Disease: No Hx Renal Disease: No Hx Cirrhosis: No Hx Alcoholism: No Hx HIV/AIDS: No Hx Splenectomy or Spleen Trauma: No Other PMH: "stroke" 2 yrs ago, bilateral PEs, DVT - Social History Smoking Status: Never smoked <Ortega Guzman - Last Filed: 12/06/17 19:56> <Elmo Watson - Last Filed: 12/06/17 21:08> Time Seen by Provider: 12/06/17 19:36 Constitutional: Initial Vital Signs Temperature (C) 36.8 C 12/06/17 19:23 Heart Rate 101 H 12/06/17 19:23 Respiratory Rate 16 12/06/17 19:23 Blood Pressure 134/70 H 12/06/17 19:23 O2 Sat (%) 94 12/06/17 19:23 O2 Delivery Mode Room Air Allergies/Adverse Reactions: No Known Allergies Allergy (Verified 12/06/17 19:25) Home Medications: Medication Instructions Recorded Warfarin Sodium [Coumadin 7.5MG 7.5 mg PO DAILY16 #30 tab 11/30/17 (*)] Doxycycline Hyclate [Vibramycin] 100 mg PO BID #30 cap 12/06/17 Medical Decision Making <Ortega Guzman - Last Filed: 12/06/17 19:56> - Diagnostics Imaging: Discussed imaging studies w/ certified coder Radiologist <Elmo Watson - Last Filed: 12/06/17 21:08> ED Course/Re-evaluation: CHIEF COMPLAINT: Cough, bilateral leg pain, shortness of breath HISTORY OF PRESENT ILLNESS: The patient is an anticoagulated (Coumadin) 22 y/o male with a history of antithrombin III deficiency, bilateral PE's, DVT's, and a TIA complaining of a worsening cough, shortness of breath, and bilateral leg pain. On 11/29/17 he as admitted to this hospital for a TIA. At this time he had a very mild cough, but only had a head CT preformed at this time. Since his admission his cough has worsened and he has become more short of breath. This shortness of breath worsens with exacerbation. Denies headache, chest pain, abdominal pain, urinary or bowel complaints, fever, numbness, paresthesias. REVIEW OF SYSTEMS: A 10 point review of systems was performed and is negative with the exception of the elements mentioned in the history of present illness. PHYSICAL EXAM: HR, BP, O2 Sat, RR. Temp noted General Appearance: Alert, well hydrated, appropriate, and non-toxic appearing. Head: Atraumatic without scalp tenderness or obvious injury Eyes: Pupils equal, round, reactive to light and accommodation, EOMI, no trauma , no injection. Ears: Clear bilaterally, no perforation, normal landmarks Nose: Atraumatic, no rhinorrhea, clear. Throat: There is no erythema or exudates, no lesions, normal tonsils, mucus membranes moist. Neck: Supple, nontender, no lymphadenopathy. Respiratory: Bilateral coarse rhonchi throughout. No retractions, no distress, no wheezes, and no accessory muscle use. Cardiovascular: Regular rate and rhythm, no murmurs, rubs, or gallops. Bilateral carotid, radial, dorsalis pedis, and posterior tibial pulses intact. Good capillary refill all extremities. Gastrointestinal: Abdomen is soft, nontender, non-distended, no masses, no rebound, no guarding, no peritoneal signs. Musculoskeletal: Normal active ROM of all extremities, atraumatic. Neurological: Alert, appropriate, and interactive. Nonfocal neuro. Skin: No rashes, good turgor, no nodules on palpation. Past medical history: Antithrombin III deficiency, CVA, TIA, bilateral PE's, DVT Past surgical history: Left intracranial balloon venoplasty, Ileal caval thrombectomy Family history: Mother has ATIII deficiency Social history: Student at , originally from [place], single DIAGNOSTICS/PROCEDURES/CRITICAL CARE TIME: Chest CTA: DIFFERENTIAL DIAGNOSIS: The differential diagnosis for the patient's shortness of breath and hypoxemia included but was not limited to pneumonia, myocardial infarction, acute mountain sickness, high altitude pulmonary edema, congestive heart failure, and pulmonary embolus. MEDICAL DECISION MAKING: The patient is an anticoagulated (Coumadin) 22 y/o male with a history of antithrombin III, bilateral PE's, DVT's, and a TIA presenting with a worsening cough and bilateral leg pain. On exam he has bilateral coarse rhonchi throughout. I-Stat, chest CTA, 500mL IV NS, and DuoNeb ordered. 2000: Patient's care has been turned over to Dr. Watson at shift change. (Ortega Guzman) Other Provider: I reviewed the CT results with the patient he is reassured. I will start him on antibiotics for pneumonia. We discussed the possibility of infarction as well. His clinical picture is consistent more with bronchitis or pneumonia. Initially we discussed Levaquin however this will interact with his Coumadin. I will start him on doxycycline initially. Discussed indications for returning. (Elmo Watson) - Data Points Laboratory Results: 12/06/17 12/06/17 19:58 19:50 POC Hgb 13.9 gm/dL gm/dL (13.7-17.5) POC Hct 41 % % (40-51) PT 27.8 SEC H SEC (12.0-15.0) INR 2.60 H (0.83-1.16) APTT 48.2 SEC H SEC (23.0-38.0) POC Sodium 140 mEq/L mEq/L (135-145) POC Potassium 3.8 mEq/L mEq/L (3.3-5.0) POC Chloride 112 mEq/L H mEq/L (97-110) POC BUN 13 mg/dL mg/dL (7-23) POC Creatinine 1.0 mg/dL mg/dL (0.7-1.3) POC Glucose 104 mg/dL H mg/dL (70-100) Medications Given: Discontinued Medications Albuterol/Ipratropium (Duoneb) 3 ml IH EDNOW ONE Stop: 12/06/17 19:45 Last Admin: 12/06/17 19:56 Dose: 3 ml Sodium Chloride (Ns) 500 mls @ 1,000 mls/hr IV EDNOW ONE PRN Reason: Protocol Stop: 12/06/17 20:13 Last Admin: 12/06/17 19:55 Dose: 500 mls Point of Care Test Results: 12/06/17 19:58 POC Sodium 140 POC Potassium 3.8 POC Chloride 112 H POC BUN 13 POC Creatinine 1.0 POC Glucose 104 H Departure <Ortega Guzman - Last Filed: 12/06/17 19:56> <Elmo Watson - Last Filed: 12/06/17 21:08> - Departure Clinical Impression: Shortness of breath, Cough Condition: Good Instructions: Doxycycline (By mouth), Acute Cough (ED), Shortness of Breath (ED ) Referrals: Jame Campoverde MD [Primary Care Provider] - As per Instructions Prescriptions: Doxycycline Hyclate [Vibramycin] 100 mg PO BID #30 cap Report Scribed for: Ortega Guzman Report Scribed by: Katelynn Lopez Date of Report: 12/06/17 Time of Report: 19:39 <Ortega Guzman - Last Filed: 12/06/17 19:56>
[2017-12-06] MEDS ORDERED: NS 500 ML IV ONE (19:44)
[2017-12-06] MEDS ORDERED: IPRATROPIUM/ALBUTEROL 3 ML DEYVIAL IH ONE (19:44)
[2017-12-06] MEDS ORDERED: IOPAMIDOL (ISOVUE 370) 100 ML BTL IV ONE (19:49)
[2017-12-06 20:11] LABS: INR 2.6 (0.83-1.16); PROTIME(PATIENT) 27.8 SEC (12.0-15.0)
[2017-12-06] MEDS ORDERED: DOXYCYCLINE 100 MG PREPACK#2 BTL TAKEHOME ONE (21:00)
[2017-12-06 21:03] VITALS: BP 133/73
== END 2017-12-06 21:18 | disposition home or self-care (01) ==
DX: R06.02 Shortness of breath (principal); R05 Cough; E86.9 Volume depletion, unspecified; Z86.73 Personal history of transient ischemic attack (TIA), and cerebral infarction without residual deficits
CPT/HCPCS: 82947-QW; Q9967

== ENCOUNTER 2018-04-25 07:47 | Emergency (ER) | payer BC ==
--- NOTE | 2018-04-25 08:01 | EDPHY ---
H & P Time Seen by Provider: 04/25/18 08:00 HPI/ROS: CHIEF COMPLAINT: Right calf pain HISTORY OF PRESENT ILLNESS: History of DVT and PE on warfarin but ran out 5 days ago. He has antithrombin 3 disorder. Patient said he "got dizzy" and ran out of medications. His prescribing provider is at [facility]. He started getting right calf pain this morning. It is behind his sharp, not associated with weakness or numbness in his foot does not radiate. Not associated with chest pain shortness of breath skin changes or fever or chills. No recent injury or trauma. REVIEW OF SYSTEMS: Eye: no change in vision ENT: no sore throat Cardiac: no chest pain or syncope Pulmonary: no cough or SOB Abdomen: no vomiting, diarrhea, abdominal pain Musculoskeletal: HPI Skin: no rash Neuro: no headache Constitutional: no fever : no urinary symptoms A comprehensive 10 point review of systems is otherwise negative aside from elements mentioned in the history of present illness. PAST MEDICAL HISTORY: DVT and PE with antithrombin 3 disorder. Social history: Prescribing provider is at [facility] General Appearance: Alert and conversant, cooperative. Eyes: No scleral icterus. ENT, Mouth: Normal mucous membranes. Respiratory: Normal respiratory effort, breath sounds equal, lungs are clear to auscultation. Cardiovascular: Regular rate and rhythm. Gastrointestinal: Abdomen is soft and non tender. Neurological: Alert, face symmetric, normal motor and sensory in extremities. Skin: Warm and dry, no rashes. Musculoskeletal: Right calf tenderness but compartments are soft, no fluctuance , no bony tenderness. Psychiatric: Not agitated. Emergency Department course/MDM: Discussed with Helio 809am. Plan for ultrasound, if positive for DVT I will provide him with a Lovenox bridge. Dr. Cadet office will reach out to him and get him restarted on his warfarin. 848: Clot in calf deep veins, ultrasound per [place]. Low molecular weight heparin injections discussed with the patient and consented. He has given these to himself before. He does not have clinical evidence of PE at this time. He states he is comfortable going home with Lovenox injections. Smoking Status: Never smoked Constitutional: Initial Vital Signs Temperature (C) 36.4 C 04/25/18 07:48 Heart Rate 84 04/25/18 07:48 Respiratory Rate 18 04/25/18 07:48 Blood Pressure 115/77 04/25/18 07:48 O2 Sat (%) 95 04/25/18 07:48 O2 Delivery Mode Room Air Allergies/Adverse Reactions: No Known Allergies Allergy (Verified 04/25/18 07:48) Home Medications: Medication Instructions Recorded Enoxaparin [Lovenox 80 MG (*)] 70 mg SQ Q12H #10 syr 04/25/18 Warfarin Sodium [Coumadin 7.5MG 7.5 mg PO DAILY16 04/25/18 (*)] Medical Decision Making - Diagnostics Imaging Results: Imaging Impressions Extremity Venous Study 04/25/18 08:05 Impression: There is deep venous thrombosis involving portions of the paired posterior tibial and peroneal veins in the right calf. There is no sonographic evidence of popliteal or suprapopliteal DVT. Findings were discussed with VADIM CAIN MD at 8:47, on 04/25/2018. Imaging: Discussed imaging studies w/ data security analyst Radiologist Differential Diagnosis: Differential considered including but not limited to muscle strain, Sullivan cyst, DVT, arterial occlusion, compartment syndrome, fracture, infection - Data Points Medications Given: Discontinued Medications Enoxaparin Sodium (Lovenox) 80 mg SC EDNOW ONE Stop: 04/25/18 08:51 Last Admin: 04/25/18 09:06 Dose: 80 mg Departure - Departure Disposition: Home, Routine, Self-Care Clinical Impression: DVT (deep venous thrombosis) Qualifiers: DVT location: lower extremity Affected thrombotic vein of extremity: unspecified vein of extremity Chronicity: acute Laterality: right Qualified Code (s): I82.401 - Acute embolism and thrombosis of unspecified deep veins of right lower extremity Condition: Good Instructions: Deep Vein Thrombosis (ED) Additional Instructions: Dr. Linda's office will call you today to get your warfarin restarted. No ibuprofen or aspirin, since you are anticoagulated. Return for chest pain or shortness of breath. Referrals: Chery Linda MD [Medical Doctor] - As per Instructions Stand Alone Forms: School Excuse Prescriptions: Enoxaparin [Lovenox 80 MG (*)] 70 mg SQ Q12H #10 syr
[2018-04-25] MEDS ORDERED: ENOXAPARIN 80 MG/0.8 ML SYR SC ONE (08:50)
[2018-04-25 09:32] VITALS: BP 130/72
== END 2018-04-25 09:15 | disposition home or self-care (01) ==
DX: I82.441 Acute embolism and thrombosis of right tibial vein (principal); D68.59 Other primary thrombophilia; Z79.01 Long term (current) use of anticoagulants; Z86.711 Personal history of pulmonary embolism; Z86.718 Personal history of other venous thrombosis and embolism
CPT/HCPCS: J1650